=== PATIENT | male | born 1955 | race Caucasian/White ===

== ENCOUNTER 2019-07-25 17:04 | Inpatient (IN) | payer OTHER ==
--- NOTE | 2019-07-25 17:31 | PDOC ---
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 Patient was sitting watching TV with his nephews when they noticed his eyes half shut, he turned pale, and his head slumped to the side. They were concerned and put a cold towel on his forehead before calling EMS. Per EMS, found patient with SBP 50s, patient given 200cc IVF bolus en route, HTN on arrival in ER. Patient without prodromal symptoms, feels well and at baseline at the current time. Per Nephew, patient has had memory deficits for over a year and is baseline A&Ox2, never knowing the time/date. Otherwise, no neurologic deficits known at baseline. Denies chest pain, SOB, nausea, vomiting , abdominal pain, headache, dizziness / lightheadedness, fevers, chills, recent illnesses, any recent drug use, issues with blood sugar / diabetes. Nephew reports that patient has been eating and drinking well at home - patient ate a bag of chips between triage and being seen by provider - told to remain NPO. All: PCNs > Swelling Meds: Per chart PMH: As above PSH: Per chart NIH Stroke Scale - Last Known Well Date/Time & Onset Date Last Known Well: 07/25/19 Time Last Known Well: 04:00 - Initial Evaluation Level of consciousness: Alert Ask patient the month and their age: Answers both correctly Ask patient to open & close eyes; make fist and let go: Obeys both correctly Best gaze (horizontal eye movement): Normal Visual field testing: No visual field loss Facial paresis (Show teeth/raise eyebrows/close eyes tight): Normal symmetrical movement Motor Function: Left Arm: Normal Motor Function: Right Arm: Normal (extends arm 90 (or 45) degrees for 10 seconds without drift Motor Function: Left Leg: Normal (extends leg 30 degrees for 5 seconds without drift) Motor Function: Right Leg: Normal (extends leg 30 degrees for 5 seconds without drift) Limb Ataxia: No ataxia Sensory(Use pinprick test arms,legs,trunk,face/side to side): Normal Best language (Describe picture, name items, read sentences): No Aphasia Dysarthria (read several words): Normal articulation Extinction and Inattention: No abnormality - Total Score NIH Stroke Scale Score: 0 Past History - Travel Traveled outside of the country in the last 30 days: No Close contact w/someone who was outside of country & ill: No - Past Medical History Allergies/Adverse Reactions: Allergies Allergy/AdvReac Type Severity Reaction Status Date / Time Penicillins Allergy Verified 07/25/19 17:29 Home Medications: Ambulatory Orders Unobtainable 07/25/19 - Psycho Social/Smoking Cessation Hx Smoking History: Current every day smoker Number of Cigarettes Smoked Daily: 10 Information on smoking cessation initiated: No Hx Alcohol Use: Yes (denies) Drug/Substance Use Hx: Yes (denies) Review of Systems - Review of Systems Able to Perform ROS?: Yes Is the patient limited Spanish proficient: No Constitutional: No: Chills, Diaphoresis, Fever, Weakness HEENTM: No: Recent change in vision, Nose Pain, Nose Congestion, Throat Pain Respiratory: No: Cough, Orthopnea, Shortness of Breath, Wheezing Cardiac (ROS): Yes: Syncope (pre-syncope). No: Chest Pain, Edema, Irregular Heart Rate, Lightheadedness, Palpitations, Chest Tightness ABD/GI: No: Constipated, Diarrhea, Nausea, Vomiting : No: Burning, Dysuria, Frequency, Pain, Urgency Musculoskeletal: No: Back Pain, Muscle Pain, Muscle Weakness Integumentary: No: Bruising, Dryness, Erythema, Pruritus, Rash Neurological: No: Headache, Numbness, Tingling, Weakness Psychiatric: No: Stressors, Change in Appetite Endocrine: No: Increased Thirst, Increased Urine, Change in Weight Hematologic/Lymphatic: No: Anemia, Blood Clots, Easy Bleeding All Other Systems: Reviewed and Negative *Physical Exam - Vital Signs Last Vital Signs Temp Pulse Resp BP Pulse Ox 97.4 F L 60 18 157/93 100 07/25/19 17:22 07/25/19 17:22 07/25/19 17:22 07/25/19 17:22 07/25/19 17:22 - Physical Exam 07/25/19 17:30 Vitals reviewed, hypertensive, AF GEN: Well appearing, appears stated age, NAD, comfortable. AAOx2 - doesn't know date/time. HEENT: NCAT, EOMI, PERRL. Sclera anicteric, noninjected. No facial asymmetry. Moist mucous membranes. Normal voice. Trachea midline. CV: RRR, S1/S2, no murmurs / rubs / gallops appreciated. LUNG: CTAB, normal work of breathing. No wheezes, rales, rhonchi. No cough. Speaking full sentences. GI: Soft, NTND, +BS, no guarding, no rebound. No masses. Neg CVAT b/l. EXTREMITIES: 2+ distal pulses. No LE edema. No obvious deformities of all extremities. SKIN: Warm, dry, no rashes appreciated, non-jaundiced. PSYCH: Normal mood and affect. Cooperative and appropriate. NEURO: CN 2-12 intact. Moving all extremities well with 5+ strength and normal sensation to light touch throughout. Normal [id number]. Normal rapid alternating movements. Normal gait. No pronator drift. Negative Romberg. 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 NIHSS 0. TIA vs orthostatic hypotension vs intox. - Stoke/TIA Orderset - Utox 07/25/19 19:27 - EKbpm, NSR, normal axis, QTc 419, no ischemic changes 07/25/19 19:28 - CBC unremarkable - Cr 1.6 without baseline - Trop negative - UTox negative - NCHCT Pending 07/25/19 20:30 - IVF changed to 1L bolus, will reassess Cr after 07/25/19 21:20 - Pt received <100cc additional fluid with BP increase from 150s to >200SBP - Concerning for hypertensive emergency given syncope, flattened T waves, 3+ blood in UA possibly residential sales representative of end organ damage - Nitro Drip started - ICU Consulted - Patient without adequate f/u, lacks PCP/Cards/Renal Dispo: Admit Hospitalist ICU 07/25/19 22:04 - Spoke with ICU EXCHANGE ENGINEER, giving patient Procardia 60 PO 07/25/19 22:19 - Admit Med/Surg: Syncope, questionable Hypertensive Emergency - CXR without infiltrate or effusion, no PTX or other acute pathology Discharge - Discharge Information Problems reviewed: Yes Clinical Impression/Diagnosis: Hypertensive emergency, ANA (acute kidney injury), Pre-syncope Hematuria Qualifiers: Hematuria type: unspecified type Qualified Code(s): R31.9 - Hematuria, unspecified Condition: Guarded - Admission Yes - Follow up/Referral - Patient Discharge Instructions - Post Discharge Activity
[2019-07-25] MEDS ORDERED: SODIUM CHLORIDE 1,000 ML IV SCH (18:00)
[2019-07-25 18:14] LABS: BASO % 0.3 % (0-2.0); EOS % 0.9 % (0-4.5); HEMATOCRIT 40.3 % (35.4-49); HEMOGLOBIN 13.8 GM/dL (11.7-16.9); LYMPH % 10.6 % (8-40); MCH 29.8 pg (25.7-33.7); MCHC 34.2 g/dl (32.0-35.9); MEAN CELL VOLUME 87.2 fl (80-96); MEAN PLT VOLUME 7.7 fl (7.5-11.1); MONO % 4.8 % (3.8-10.2); NEUT % 83.4 % (42.8-82.8); PLATELET COUNT 195 K/MM3 (134-434); RBC 4.62 M/mm3 (4.00-5.60); RDW 14.2 % (11.9-15.9); WHITE BLOOD COUNT 9.5 K/mm3 (4.0-10.0)
[2019-07-25 18:21] LABS: INR 1.03 (0.83-1.09); PROTHROMBIN TIME (PATIENT) 12.1 SEC (9.7-13.0)
[2019-07-25 18:23] LABS: ACTIVATED PTT 23.9 SECONDS (25.2-36.5)
[2019-07-25 18:41] LABS: CHOLESTEROL 176 mg/dL (50-200); HDL CHOLESTEROL 28 mg/dL (40-60); LDL CHOLESTEROL (ONLY SJRH) 118 mg/dL (5-100); TRIGLYCERIDES 132 mg/dL (0-150)
[2019-07-25 18:42] LABS: ALBUMIN 3.4 g/dl (3.4-5.0); ALK PHOS 66 U/L (45-117); ANION GAP 6 MMOL/L (8-16); BILIRUBIN,TOTAL 0.4 mg/dL (0.2-1); BLOOD UREA NITROGEN 24.4 mg/dL (7-18); CHLORIDE 108 mmol/L (98-107); CO2 27 mmol/L (21-32); CREATININE 1.6 mg/dL (0.55-1.3); GLUCOSE,RANDOM 126 mg/dL (74-106); POTASSIUM 4.1 mmol/L (3.5-5.1); SGOT/AST 14 U/L (15-37); SGPT/ALT 17 U/L (13-61); SODIUM 141 mmol/L (136-145); TOT PROT 6.4 g/dl (6.4-8.2)
[2019-07-25 18:51] LABS: EPI CELLS 2.6 /HPF (0-5/HPF); HYALINE CASTS 8 /lpf (0-8); URINE APPEARANCE CLEAR; URINE BILIRUBIN NEGATIVE (NEGATIVE); URINE COLOR YELLOW; URINE GLUCOSE (UA) NEGATIVE (NEGATIVE); URINE KETONE NEGATIVE (NEGATIVE); URINE LEUK ESTERASE NEGATIVE (NEGATIVE); URINE NITRITE NEGATIVE (NEGATIVE); URINE PROTEIN 2+ (NEGATIVE); URINE RBC 133 /hpf (0-4); URINE UROBILINOGEN 0.2 mg/dL (0.2-1.0); URINE WBC 3 /hpf (0-5)
[2019-07-25 18:59] LABS: COCAINE, UR NEGATIVE ng/ml (CUTOFF=300); METHADONE, UR NEGATIVE ng/ml (CUTOFF=300); OPIATES, URI NEGATIVE ng/ml (CUTOFF=300); PHENCYCLIDINE,URINE NEGATIVE ng/ml (CUTOFF=25); URINE AMPHETAMINES NEGATIVE ng/ml (CUTOFF=500); URINE BARBITURATES NEGATIVE ng/ml (CUTOFF=200); URINE BENZODIAZEPINES NEGATIVE ng/ml (CUTOFF=200)
--- NOTE | 2019-07-25 19:50 | PDOC ---
Attending Attestation - Resident Resident Name: Jimbo Moss - ED Attending Attestation I have performed the following: I have examined & evaluated the patient, The case was reviewed & discussed with the resident, I agree w/resident's findings & plan - HPI HPI: 07/27/19 01:54 Pateint came with a near syncope. He has HTN that is not controlled as he doesn 't have meds and doesn't knwo his med names or his doc's name. He uses drugs and has been clean; now living with a nephew who took him into his home. Pt has HTN that is poorly controlled. He has no specific complaints. Today he felt dizzy and almost passed out, but he didn't. - Physicial Exam PE: 07/27/19 01:56 Normal exam. No pitting edema BP elevated Chest clear Lungs clear heart RRR Pt has no abd pain Pt has no flank pain Neuro exam WNL - Medical Decision Making 07/25/19 19:49 Patient Name: MICHAEL HINDS THIS IS A PRELIMINARY REPORT FROM [facility] DATE OF SERVICE: 2019-07-25 19:02:38 IMAGES: 224 EXAM: CT HEAD WITHOUT CONTRAST REASON FOR EXAM: Rule out CVA COMPARISON: None FINDINGS: No intracranial hemorrhage midline shift, acute large vessel infarction Gomez white matter demarcation intact. Ventricles, sulci and basal cisterns are within normal for age. Chronic bilateral maxillary sinusitis. The rest of the visualized paranasal sinuses and mastoid air cells are clear. Orbital structures are intact. Calvarium intact. IMPRESSION: No acute intracranial findings. Chronic bilateral maxillary sinusitis 07/25/19 20:50 Pt's BP is 194/120 and he has end organ damage BUN/CR elevated and blood in his urine. Pt is non compliant with HTN meds and he has no idea of the meds that he is supposed to take and has no idea of the name of his doctor.
[2019-07-25] MEDS ORDERED: SODIUM CHLORIDE 0.9% 500 ML INFUS.BAG IV ONE (20:30)
[2019-07-25] MEDS ORDERED: NITROGLYCERIN 25MG/D5W 250ML 25 MG/250 ML ML IVPB SCH (21:00)
[2019-07-25] MEDS ORDERED: LISINOPRIL 20 MG TABLET (FP) PO SCH (21:00)
[2019-07-25] MEDS ORDERED: NITROGLYCERIN 25MG/D5W 250ML 25 MG/250 ML ML IVPB ONE (21:45)
[2019-07-25] MEDS ORDERED: NIFEdipine 10 MG CAPSULE (FP) PO ONE (22:15)
[2019-07-25] MEDS ORDERED: NIFEdipine E.R. 30 MG TABLET (FP) ONE ×2 (22:38→22:40)
[2019-07-25] MEDS ORDERED: IBUPROFEN 600 MG TABLET (FP) PO ONE (23:01)
--- NOTE | 2019-07-26 01:08 | HP ---
CHIEF COMPLAINT:Presyncope PCP:Unknown HISTORY OF PRESENT ILLNESS: 64yo Male Poor historian brought in by EMS after presyncope episode around 4 PM on 07/25/2020 patient was watching TV with his nephews and then they noticed that he turned pale and called EMS. Allegedly patient was initially hypotensive and was resuscitated with 200 cc of IV fluid by EMS, hypertension in the ER. Patient denied chest pain, shortness of breath, abdominal pain, headache, focal weaknesses, recent drug use. ER course was notable for: (1)Head CT (2)Chest x-ray (3)Nicardipine p.o. Recent Travel:No PAST MEDICAL HISTORY:Possible CVA, hypertension, substance abuse PAST SURGICAL HISTORY:None Social History: Smoking:No Alcohol:No Drugs: Past heroin user intranasally Allergies Penicillins Allergy (Verified 07/25/19 17:29) HOME MEDICATIONS: Home Medications Medication Instructions Recorded Unobtainable 07/25/19 REVIEW OF SYSTEMS CONSTITUTIONAL: Absent: fever, chills, diaphoresis, , malaise, loss of appetite, weight change Present:generalized weakness, Dizziness HEENT: Absent: rhinorrhea, nasal congestion, throat pain, throat swelling, difficulty swallowing, mouth swelling, ear pain, eye pain, visual changes CARDIOVASCULAR: Absent: chest pain, syncope, palpitations, irregular heart rate, lightheadedness , peripheral edema RESPIRATORY: Absent: cough, shortness of breath, dyspnea with exertion, orthopnea, wheezing, stridor, hemoptysis GASTROINTESTINAL: Absent: abdominal pain, abdominal distension, nausea, vomiting, diarrhea, constipation, melena, hematochezia GENITOURINARY: Absent: dysuria, frequency, urgency, hesitancy, hematuria, flank pain, genital pain MUSCULOSKELETAL: Absent: myalgia, arthralgia, joint swelling, back pain, neck pain SKIN: Absent: rash, itching, pallor HEMATOLOGIC/IMMUNOLOGIC: Absent: easy bleeding, easy bruising, lymphadenopathy, frequent infections ENDOCRINE: Absent: unexplained weight gain, unexplained weight loss, heat intolerance, cold intolerance NEUROLOGIC: Absent: headache, focal weakness or paresthesias, dizziness, unsteady gait, seizure, mental status changes, bladder or bowel incontinence PSYCHIATRIC: Absent: anxiety, depression, suicidal or homicidal ideation, hallucinations. PHYSICAL EXAMINATION Vital Signs - 24 hr 07/25/19 07/25/19 07/25/19 17:22 18:47 20:55 Temperature 97.4 F L 97.9 F Pulse Rate 60 Pulse Rate [ 72 67 Apical] Respiratory 18 18 18 Rate Blood Pressure 157/93 Blood Pressure 148/77 203/98 H [Left Arm] O2 Sat by Pulse 100 100 98 Oximetry (%) 07/25/19 07/25/19 07/25/19 21:29 21:54 22:41 Temperature Pulse Rate Pulse Rate [ 67 68 94 H Apical] Respiratory 20 17 17 Rate Blood Pressure Blood Pressure 198/104 H 170/91 175/134 H [Left Arm] O2 Sat by Pulse 99 99 99 Oximetry (%) GENERAL: Awake, alert, and fully oriented, in no acute distress. HEAD: Normal with no signs of trauma. EYES: Pupils equal, round and reactive to light, extraocular movements intact, sclera anicteric, conjunctiva clear. No lid lag. EARS, NOSE, THROAT: Ears normal, nares patent, oropharynx clear without exudates. Moist mucous membranes. NECK: Normal range of motion, supple without lymphadenopathy, JVD, or masses. LUNGS: Breath sounds equal, clear to auscultation bilaterally. No wheezes, and no crackles. No accessory muscle use. HEART: Regular rate and rhythm, normal S1 and S2 without murmur, rub or gallop. ABDOMEN: Soft, nontender, not distended, normoactive bowel sounds, no guarding, no rebound, no masses. MUSCULOSKELETAL: Normal range of motion at all joints. No bony deformities or tenderness. No CVA tenderness. UPPER EXTREMITIES: 2+ pulses, warm, well-perfused. No cyanosis. No clubbing. No peripheral edema. LOWER EXTREMITIES: 2+ pulses, warm, well-perfused. No calf tenderness. No peripheral edema. NEUROLOGICAL: Cranial nerves II-XII intact. Normal speech. Normal gait. PSYCHIATRIC: Cooperative. Good eye contact. Appropriate mood and affect. SKIN: Warm, dry, normal turgor, no rashes or lesions noted, normal capillary refill. Laboratory Results - last 24 hr 07/25/19 07/25/19 07/25/19 17:45 17:45 17:45 WBC RBC Hgb Hct MCV MCH MCHC RDW Plt Count MPV Absolute Neuts (auto) Neutrophils % Lymphocytes % Monocytes % Eosinophils % Basophils % Nucleated RBC % PT with INR 12.10 INR 1.03 PTT (Actin FS) 23.9 L Sodium 141 Potassium 4.1 Chloride 108 H Carbon Dioxide 27 Anion Gap 6 L BUN 24.4 H Creatinine 1.6 H Est GFR (CKD-EPI)AfAm 51.63 Est GFR (CKD-EPI)NonAf 44.55 Random Glucose 126 H Calcium 9.0 Total Bilirubin 0.4 AST 14 L ALT 17 Alkaline Phosphatase 66 Creatine Kinase 121 Troponin I < 0.02 Total Protein 6.4 Albumin 3.4 Triglycerides 132 Cholesterol 176 Total LDL Cholesterol 118 H HDL Cholesterol 28 L Urine Color Urine Appearance Urine pH Ur Specific [place] Urine Protein Urine Glucose (UA) Urine Ketones Urine Blood Urine Nitrite Urine Bilirubin Urine Urobilinogen Ur Leukocyte Esterase Urine WBC (Auto) Urine RBC (Auto) Urine Casts (Auto) U Epithel Cells (Auto) Urine Bacteria (Auto) Opiates Screen Methadone Screen Barbiturate Screen Phencyclidine Screen Ur Amphetamines Screen MDMA (Ecstasy) Screen Benzodiazepines Screen Cocaine Screen U Marijuana (THC) Screen 07/25/19 07/25/19 07/25/19 17:45 18:30 18:30 WBC 9.5 RBC 4.62 Hgb 13.8 Hct 40.3 MCV 87.2 MCH 29.8 MCHC 34.2 RDW 14.2 Plt Count 195 MPV 7.7 Absolute Neuts (auto) 7.9 Neutrophils % 83.4 H Lymphocytes % 10.6 Monocytes % 4.8 Eosinophils % 0.9 Basophils % 0.3 Nucleated RBC % 0 PT with INR INR PTT (Actin FS) Sodium Potassium Chloride Carbon Dioxide Anion Gap BUN Creatinine Est GFR (CKD-EPI)AfAm Est GFR (CKD-EPI)NonAf Random Glucose Calcium Total Bilirubin AST ALT Alkaline Phosphatase Creatine Kinase Troponin I Total Protein Albumin Triglycerides Cholesterol Total LDL Cholesterol HDL Cholesterol Urine Color Yellow Urine Appearance Clear Urine pH 6.0 Ur Specific [place] 1.019 Urine Protein 2+ H Urine Glucose (UA) Negative Urine Ketones Negative Urine Blood 3+ H Urine Nitrite Negative Urine Bilirubin Negative Urine Urobilinogen 0.2 Ur Leukocyte Esterase Negative Urine WBC (Auto) 3 Urine RBC (Auto) 133 Urine Casts (Auto) 8 U Epithel Cells (Auto) 2.6 Urine Bacteria (Auto) 5.0 Opiates Screen Negative Methadone Screen Negative Barbiturate Screen Negative Phencyclidine Screen Negative Ur Amphetamines Screen Negative MDMA (Ecstasy) Screen Negative Benzodiazepines Screen Negative Cocaine Screen Negative U Marijuana (THC) Screen Negative Imaging studies reviewed ASSESSMENT/PLAN: 64-year-old male with hypertensive urgency. Elevated creatinine however unknown baseline.ANA versus CKD. Presyncope episode at home. Ex-heroin user. [facility] Start amlodipine 5 mg daily and lisinopril 10 mg daily and titrate as needed IV fluid hydration Renal sonogram Avoid nephrotoxins Urine toxicology screen Repeat chemistry Obtain medical records from PCP during the day Monitor vital signs closely Salt restriction fall precautions Physical therapy Heparin subcutaneously for DVT prophylaxis Visit type - Emergency Visit Emergency Visit: Yes ED Registration Date: 07/26/19 Care time: The patient presented to the Emergency Department on the above date and was hospitalized for further evaluation of their emergent condition. - New Patient This patient is new to me today: Yes Date on this admission: 07/26/19 - Critical Care Critical Care patient: No
[2019-07-26] MEDS: SODIUM CHLORIDE 1,000 ML IV SCH (01:58)
[2019-07-26] MEDS: LISINOPRIL 10 MG TABLET (FP) PO SCH (09:40)
[2019-07-26] MEDS: amLODIPine BESYLATE 5 MG TABLET (FP) PO SCH (09:40)
--- NOTE | 2019-07-26 13:18 | EKG ---
Test Reason : Blood Pressure : / mmHG Vent. Rate : 063 BPM Atrial Rate : 063 BPM P-R Int : 146 ms QRS Dur : 090 ms QT Int : 410 ms P-R-T Axes : 053 033 -69 degrees QTc Int : 419 ms NORMAL SINUS RHYTHM NONSPECIFIC T WAVE ABNORMALITY ABNORMAL ECG NO PREVIOUS ECGS AVAILABLE Confirmed by JAZ GILL MD ([id number]) on 07/26/2019 1:18:38 PM Referred By: Confirmed By:JAZ GILL MD
[2019-07-26 17:23] LABS: HEMATOCRIT 39.7 % (35.4-49); HEMOGLOBIN 13.6 GM/dL (11.7-16.9); MCH 29.6 pg (25.7-33.7); MCHC 34.3 g/dl (32.0-35.9); MEAN CELL VOLUME 86.4 fl (80-96); MEAN PLT VOLUME 7.3 fl (7.5-11.1); PLATELET COUNT 217 K/MM3 (134-434); RDW 14.1 % (11.9-15.9)
--- NOTE | 2019-07-26 17:27 | PN ---
Progress Note, Physician Chief Complaint: lightheaded History of Present Illness: seen and examined in ER. Feeling ok, giggling. - Current Medication List Current Medications: Active Medications Amlodipine Besylate (Norvasc -) 5 mg PO DAILY [facility] Last Admin: 07/26/19 09:40 Dose: 5 mg Sodium Chloride (Normal Saline -) 1,000 mls @ 75 mls/hr IV ASDIR [facility] Last Admin: 07/26/19 01:58 Dose: 75 mls/hr Lisinopril (Prinivil) 10 mg PO DAILY [facility] Last Admin: 07/26/19 09:40 Dose: 10 mg - Objective Vital Signs: Vital Signs Temperature 97.9 F 07/25/19 18:47 Pulse Rate 74 07/26/19 15:52 Respiratory Rate 16 07/26/19 15:52 Blood Pressure 138/74 07/26/19 15:52 O2 Sat by Pulse Oximetry (%) 97 07/26/19 06:43 Constitutional: Yes: Well Nourished, No Distress, Calm, Other (dee dee) Cardiovascular: Yes: WNL, Regular Rate and Rhythm Respiratory: Yes: WNL, Regular, CTA Bilaterally Gastrointestinal: Yes: WNL, Normal Bowel Sounds, Soft, Abdomen, Obese Musculoskeletal: Yes: WNL Extremities: Yes: WNL Edema: LLE: Trace, RLE: Trace Peripheral Pulses WNL: Yes Neurological: Yes: WNL, Alert, Oriented Labs: INR, PTT INR 1.03 (0.83-1.09) 07/25/19 17:45 Problem List - Problems (1) ANA (acute kidney injury) Code(s): N17.9 - ACUTE KIDNEY FAILURE, UNSPECIFIED (2) Hematuria Code(s): R31.9 - HEMATURIA, UNSPECIFIED Qualifiers: Hematuria type: unspecified type Qualified Code(s): R31.9 - Hematuria, unspecified (3) Hypertensive emergency Code(s): I16.1 - HYPERTENSIVE EMERGENCY (4) Pre-syncope Code(s): R55 - SYNCOPE AND COLLAPSE Assessment/Plan ASSESSMENT: HTN urgency ANA Pre-syncope IVDA Hx Plan: BP much better controlled with current regimen pending repeat labs renal us pending ct scan neg na restriction utox neg 2decho in AM
[2019-07-26 17:46] LABS: BLOOD UREA NITROGEN 25.8 mg/dL (7-18); CALCIUM 9.2 mg/dL (8.5-10.1); CREATININE 1.6 mg/dL (0.55-1.3); MAGNESIUM 2.4 mg/dL (1.8-2.4); POTASSIUM 3.9 mmol/L (3.5-5.1)
[2019-07-26 17:51] VITALS: BMI 27.3
[2019-07-27] MEDS: SODIUM CHLORIDE 1,000 ML IV SCH (04:05)
[2019-07-27] MEDS: amLODIPine BESYLATE 5 MG TABLET (FP) PO SCH ×3 (05:59→10:41)
[2019-07-27] MEDS: LISINOPRIL 10 MG TABLET (FP) PO SCH ×2 (06:00→10:41)
--- NOTE | 2019-07-27 09:36 | PN ---
Physical Exam: SUBJECTIVE: Patient seen and examined. He has no complaints. OBJECTIVE: Vital Signs Period Temp Pulse Resp BP Sys/Allen Pulse Ox Last 24 Hr 98.0 F-98.8 F 74-83 16-20 108-173/62-91 99-99 GENERAL: The patient is awake, alert, and fully oriented, in no acute distress. LUNGS: Breath sounds equal, clear to auscultation bilaterally, no wheezes, no crackles, no accessory muscle use. HEART: Regular rate and rhythm, S1, S2 without murmur, rub or gallop. ABDOMEN: Soft, nontender, nondistended, normoactive bowel sounds, no guarding, no rebound, no hepatosplenomegaly, no masses. EXTREMITIES: 2+ pulses, warm, well-perfused, no edema. Laboratory Results - last 24 hr 07/26/19 07/26/19 07/26/19 16:58 16:58 16:58 WBC 7.0 RBC 4.60 Hgb 13.6 Hct 39.7 MCV 86.4 MCH 29.6 MCHC 34.3 RDW 14.1 Plt Count 217 MPV 7.3 L Sodium 141 Potassium 3.9 Chloride 110 H Carbon Dioxide 26 Anion Gap 5 L BUN 25.8 H Creatinine 1.6 H Est GFR (CKD-EPI)AfAm 51.63 Est GFR (CKD-EPI)NonAf 44.55 Random Glucose 99 Hemoglobin A1c % 6.4 H Calcium 9.2 Magnesium 2.4 Blood Type 07/26/19 19:04 WBC RBC Hgb Hct MCV MCH MCHC RDW Plt Count MPV Sodium Potassium Chloride Carbon Dioxide Anion Gap BUN Creatinine Est GFR (CKD-EPI)AfAm Est GFR (CKD-EPI)NonAf Random Glucose Hemoglobin A1c % Calcium Magnesium Blood Type B POSITIVE Active Medications Generic Name Dose Route Start Last Admin Trade Name Freq PRN Reason Stop Dose Admin Amlodipine Besylate 5 mg 07/26/19 10:00 07/27/19 06:00 Norvasc - PO 5 mg DAILY PREETHI Administration Sodium Chloride 1,000 mls @ 75 mls/hr 07/26/19 01:45 07/27/19 04:05 Normal Saline - IV 75 mls/hr ASDIR PREETHI Administration Lisinopril 10 mg 07/26/19 10:00 07/27/19 06:00 Prinivil PO 10 mg DAILY PREETHI Administration ASSESSMENT/PLAN: This is a 64 year old man with a history of HTN, IVDU who presented to the ED after he was noted to become pale while watching tv. 1. Hypertensive urgency - Improved 2. HTN - Will increase Norvasc for better BP control - Continue lisinopril 3. Disposition - Expect discharge tomorrow if BP better controlled Visit type - Emergency Visit Emergency Visit: Yes ED Registration Date: 07/26/19 Care time: The patient presented to the Emergency Department on the above date and was hospitalized for further evaluation of their emergent condition. - New Patient This patient is new to me today: Yes Date on this admission: 07/27/19 - Critical Care Critical Care patient: No - Discharge Referral Referred to [facility] Med P.C.: No
[2019-07-27] MEDS ORDERED: amLODIPine BESYLATE 5 MG TABLET (FP) PO ONE (11:25)
[2019-07-27 12:24] LABS: BASO % 0.6 % (0-2.0); EOS % 1.8 % (0-4.5); HEMOGLOBIN 14.2 GM/dL (11.7-16.9); LYMPH % 22.6 % (8-40); MCH 30.5 pg (25.7-33.7); MCHC 35.6 g/dl (32.0-35.9); MEAN CELL VOLUME 85.5 fl (80-96); MEAN PLT VOLUME 7.4 fl (7.5-11.1); MONO % 7.4 % (3.8-10.2); NEUT % 67.6 % (42.8-82.8); PLATELET COUNT 204 K/MM3 (134-434); RBC 4.67 M/mm3 (4.00-5.60); RDW 14.2 % (11.9-15.9)
--- NOTE | 2019-07-27 12:25 | ECHO ---
Name: HINDSMICHAEL MENDENHALL Exam:Adult Echocardiogram Study Date: 07/27/2019 09:55 AM Age: 64 yrs Height: 66 in Weight: 170 lb BSA: 1.9 m2 MMode/2D Measurements & Calculations IVSd: 1.1 cm Ao root diam: 2.7 cm LVIDd: 4.5 cm LA dimension: 3.3 cm LVIDs: 3.3 cm ACS: 1.7 cm LVPWd: 1.3 cm EDV(Teich): 94.3 ml LVOT diam: 1.8 cm ESV(Teich): 43.0 ml RV S Ray: 12.3 cm/sec Doppler Measurements & Calculations MV E max ray: 107.6 cm/sec Ao V2 max: 151.3 cm/sec MV A max ray: 96.7 cm/sec Ao max P.2 mmHg MV E/A: 1.1 Ao V2 mean: 96.6 cm/sec MV dec time: 0.16 sec Ao mean P.4 mmHg Ao V2 VTI: 28.2 cm QUIANA(I,D): 1.6 cm2 QUIANA(V,D): 1.5 cm2 LV V1 max P.1 mmHg MR max ray: 209.6 cm/sec LV V1 mean P.6 mmHg MR max P.6 mmHg LV V1 max: 87.9 cm/sec LV V1 mean: 60.6 cm/sec LV V1 VTI: 17.3 cm SV(LVOT): 45.4 ml TR max ray: 175.2 cm/sec TR max P.1 mmHg PA V2 max: 81.4 cm/sec PI end-d ray: 103.2 cm/sec PA max P.7 mmHg Med Peak E' Ray: 7.2 cm/sec Med E/e': 14.9 Lat Peak E' Ray: 6.5 cm/sec Lat E/e': 16.4 Procedure A complete two-dimensional transthoracic echocardiogram was performed (2D, M-mode, Doppler and color flow Doppler). Left Ventricle The left ventricle is normal in size. Left ventricular systolic function is normal. Ejection Fraction = 55- 60%. No regional wall motion abnormalities noted. Right Ventricle The right ventricle is normal size. The right ventricular systolic function is normal. Atria The left atrial size is normal. Right atrial size is normal. Mitral Valve The mitral valve is normal in structure and function. There is trace to mild mitral regurgitation. Tricuspid Valve The tricuspid valve is normal in structure and function. There is mild tricuspid regurgitation. Right ventricular systolic pressure is normal. Aortic Valve There is mild aortic sclerosis.;. No aortic regurgitation is present. Pulmonic Valve The pulmonic valve is not well visualized. Trace to mild pulmonic valvular regurgitation. Great Vessels The aortic root is normal size. Pericardium/Pleura There is no pericardial effusion. Interpretation Summary The left ventricle is normal in size. Left ventricular systolic function is normal. No regional wall motion abnormalities noted. Ejection Fraction = 55-60%. The right ventricular systolic function is normal. The left atrial size is normal. Right atrial size is normal. There is trace to mild mitral regurgitation. There is mild tricuspid regurgitation. There is mild aortic sclerosis. No aortic regurgitation is present. Trace to mild pulmonic valvular regurgitation. There is no pericardial effusion. Kevon Ocampo MD 07/27/2019 12:25 PM
[2019-07-27 12:47] LABS: BLOOD UREA NITROGEN 24.2 mg/dL (7-18); CALCIUM 9.2 mg/dL (8.5-10.1); CREATININE 1.3 mg/dL (0.55-1.3); POTASSIUM 3.7 mmol/L (3.5-5.1)
[2019-07-27] MEDS: LABETALOL HCL 100 MG TABLET (FP) PO SCH (23:01)
[2019-07-28 09:22] VITALS: BP 140/75; PULSE 69; TEMP 98.1
[2019-07-28] MEDS: LABETALOL HCL 100 MG TABLET (FP) PO SCH (09:38)
[2019-07-28] MEDS: LISINOPRIL 10 MG TABLET (FP) PO SCH (09:38)
[2019-07-28] MEDS: SODIUM CHLORIDE 1,000 ML IV SCH (09:38)
[2019-07-28] MEDS ORDERED: amLODIPine BESYLATE 10 MG TABLET (FP) PO SCH (10:00)
--- NOTE | 2019-07-28 11:11 | DS ---
Physical Exam: SUBJECTIVE: Patient seen and examined OBJECTIVE: Vital Signs Period Temp Pulse Resp BP Sys/Allen Pulse Ox Last 24 Hr 97.8 F-98.1 F 68-81 20-20 116-154/62-84 98-99 PHYSICAL EXAM GENERAL: The patient is awake, alert, and fully oriented, in no acute distress. HEAD: Normal with no signs of trauma. EYES: PERRL, extraocular movements intact, sclera anicteric, conjunctiva clear. ENT: Ears normal, nares patent, oropharynx clear without exudates, moist mucous membranes. NECK: Trachea midline, full range of motion, supple. LUNGS: Breath sounds equal, clear to auscultation bilaterally, no wheezes, no crackles, no accessory muscle use. HEART: Regular rate and rhythm, S1, S2 without murmur, rub or gallop. ABDOMEN: Soft, nontender, nondistended, normoactive bowel sounds, no guarding, no rebound, no hepatosplenomegaly, no masses. EXTREMITIES: 2+ pulses, warm, well-perfused, no edema. NEUROLOGICAL: Cranial nerves II through XII grossly intact. Normal speech, gait not observed. PSYCH: Normal mood, normal affect. SKIN: Warm, dry, normal turgor, no rashes or lesions noted. LABS Laboratory Results - last 24 hr 07/27/19 07/27/19 11:15 11:15 WBC 8.0 RBC 4.67 Hgb 14.2 Hct 40.0 MCV 85.5 MCH 30.5 MCHC 35.6 RDW 14.2 Plt Count 204 MPV 7.4 L Absolute Neuts (auto) 5.4 Neutrophils % 67.6 Lymphocytes % 22.6 D Monocytes % 7.4 Eosinophils % 1.8 D Basophils % 0.6 Nucleated RBC % 0 Sodium 141 Potassium 3.7 Chloride 109 H Carbon Dioxide 26 Anion Gap 6 L BUN 24.2 H Creatinine 1.3 Est GFR (CKD-EPI)AfAm 66.36 Est GFR (CKD-EPI)NonAf 57.26 Random Glucose 95 Calcium 9.2 HOSPITAL COURSE: Date of Admission:07/26/19 Date of Discharge: 07/28/19 Discharge Summary Problems reviewed: Yes Reason For Visit: ACUTE KIDNEY INJURY MENATURIA PRE SYNCOPE HYPERTEN Current Active Problems ANA (acute kidney injury) (Acute) Hematuria (Acute) Hypertensive emergency (Acute) Pre-syncope (Acute) Condition: Guarded - Instructions - Home Medications Comprehensive Discharge Medication List: Ambulatory Orders Amlodipine Besylate [Norvasc -] 10 mg PO DAILY #30 tablet 07/28/19 Labetalol HCl [Normodyne -] 100 mg PO BID #60 tablet 07/28/19 Lisinopril [Prinivil] 10 mg PO DAILY #30 tablet 07/28/19 - Discharge Referral Referred to [facility] No ATTENDING PHYSICIAN STATEMENT I saw and evaluated the patient. I reviewed the resident's note and discussed the case with the resident. I agree with the resident's findings and plan as documented. SUBJECTIVE: OBJECTIVE: ASSESSMENT AND PLAN:
--- NOTE | 2019-07-28 16:29 | PN ---
Teaching Attending Note Name of Resident: Jacob Tovar ATTENDING PHYSICIAN STATEMENT I saw and evaluated the patient. I reviewed the resident's note and discussed the case with the resident. I agree with the resident's findings and plan as documented. SUBJECTIVE: Seen and examined at bedside, feeling well, no complaints, ready to go home. OBJECTIVE: Vital Signs - 24 hr 07/27/19 07/27/19 07/28/19 19:00 21:00 01:00 Temperature 97.8 F 98 F Pulse Rate 78 68 Respiratory 20 20 20 Rate Blood Pressure 154/84 119/66 O2 Sat by Pulse 98 Oximetry (%) 07/28/19 07/28/19 07/28/19 05:48 07:52 09:20 Temperature 98 F 98.1 F Pulse Rate 71 69 Respiratory 20 20 20 Rate Blood Pressure 116/62 140/75 O2 Sat by Pulse 98 Oximetry (%) 07/28/19 09:30 Temperature Pulse Rate Respiratory Rate Blood Pressure O2 Sat by Pulse 99 Oximetry (%) PE: Constitutional: Yes: Well Nourished, No Distress, Calm Cardiovascular: Yes: WNL, Regular Rate and Rhythm Respiratory: Yes: WNL, Regular, CTA Bilaterally Gastrointestinal: Yes: WNL, Normal Bowel Sounds, Soft, Abdomen, Obese Musculoskeletal: Yes: WNL Extremities: Yes: WNL Edema: LLE: Trace, RLE: Trace Peripheral Pulses WNL: Yes Neurological: Yes: WNL, Alert, Oriented labs, meds and imaging reviewed ASSESSMENT: HTN urgency ANA Pre-syncope IVDA Hx Plan: BP much better controlled with current regimen DC home on current meds outpatient followup, monitor renal function 2dechocardiogram report reviewed Problem List - Problems (1) ANA (acute kidney injury) Code(s): N17.9 - ACUTE KIDNEY FAILURE, UNSPECIFIED (2) Hematuria Code(s): R31.9 - HEMATURIA, UNSPECIFIED Qualifiers: Hematuria type: unspecified type Qualified Code(s): R31.9 - Hematuria, unspecified (3) Hypertensive emergency Code(s): I16.1 - HYPERTENSIVE EMERGENCY (4) Pre-syncope Code(s): R55 - SYNCOPE AND COLLAPSE
--- NOTE | 2019-07-28 17:45 | DS ---
Physical Exam: SUBJECTIVE: Patient seen and examined. Offers no complaints. No acute events overnight. Says he wants to go home. OBJECTIVE: Vital Signs Period Temp Pulse Resp BP Sys/Allen Pulse Ox Last 24 Hr 97.8 F-98.1 F 68-78 20-20 116-154/62-84 98-99 PHYSICAL EXAM GENERAL: a/o x 3, in nad, comfortable HEAD: Normal with no signs of trauma. EYES: PERRL, injected conjunctiva ENT: moist mucous membranes. NECK: supple. LUNGS: lungs ctab HEART: RRR, no murmurs appreciated ABDOMEN: Soft, nontender, nondistended, normoactive bowel sounds EXTREMITIES: 2+ pulses, no edema. NEUROLOGICAL: Cranial nerves II through XII grossly intact HOSPITAL COURSE: Date of Admission:07/26/19 #HTN urgency #ANA #Pre-syncope #IVDA Hx Plan: -BP much better controlled with current regimen -DC home on current meds -had long discussion with patient and nephew regarding diagnosis and plan. Discussed the importance of following up outpatient for BP management and to monitor renal function. they agree to follow up with me outpatient. -patient and nephew in agreement with plans. all questions answered -echo report reviewed -discharge on Lisinopril, Labetolol, amlodipine. Date of Discharge: 07/28/19 Minutes to complete discharge: 35 Discharge Summary Problems reviewed: Yes Reason For Visit: ACUTE KIDNEY INJURY MENATURIA PRE SYNCOPE HYPERTEN Condition: Improved - Instructions Diet, Activity, Other Instructions: You were admitted to the hospital because of a dangerously elevated blood pressure which caused injury to your kidneys. Your Blood pressure improved with medications and your kidney function improved. You will need to follow up with your primary care doctor in 1 week. Please take your medications as prescribed. If you develop chest pains, shortness of breath, dizziness, or loss of consciousness, call 911. Disposition: HOME - Home Medications Comprehensive Discharge Medication List: Ambulatory Orders Amlodipine Besylate [Norvasc -] 10 mg PO DAILY #30 tablet 07/28/19 Labetalol HCl [Normodyne -] 100 mg PO BID #60 tablet 07/28/19 Lisinopril [Prinivil] 10 mg PO DAILY #30 tablet 07/28/19 This patient is new to me today: Yes Date on this admission: 07/28/19 Emergency Visit: Yes ED Registration Date: 07/26/19 Care time: The patient presented to the Emergency Department on the above date and was hospitalized for further evaluation of their emergent condition. Critical Care patient: No - Discharge Referral Referred to [facility] No ATTENDING PHYSICIAN STATEMENT I saw and evaluated the patient. I reviewed the resident's note and discussed the case with the resident. I agree with the resident's findings and plan as documented. SUBJECTIVE: OBJECTIVE: ASSESSMENT AND PLAN:
== END 2019-07-28 13:08 | disposition home or self-care (01) | DRG 305 ==
LOC: JER 17:04 → JERBED 22:02 → OBSVTOIN 07-26 01:09 → J7W 07-26 17:25
PROVIDERS: ADMIT Internal Medicine; ATTEND Internal Medicine
DX: I16.1 Hypertensive emergency (principal); N17.9 Acute kidney failure, unspecified; R55 Syncope and collapse; R31.9 Hematuria, unspecified; E66.9 Obesity, unspecified; Z68.27 Body mass index [BMI] 27.0-27.9, adult
CPT/HCPCS: 36415; 70450-TC; 71045-TC-FY; 76775-TC; 80048; 80053; 80061; 80307; 81003; 82550; 83036; 83721; 83735; 84484; 85025; 85027; 85610; 85730; 86850; 86900; 86901; 93005; 93010; 93306-TC; 99285-25; G0378; J7030

== ENCOUNTER 2022-07-26 10:37 | Observation (INO) | payer OTHER ==
[2022-07-26 10:55] VITALS: BMI 25.8
[2022-07-26 13:19] LABS: BASO % 0.3 % (0-2.0); EOS % 1.2 % (0-4.5); HEMATOCRIT 41.1 % (35.4-49); HEMOGLOBIN 14.3 GM/dL (11.7-16.9); LYMPH % 14.1 % (8-40); MCH 29.9 pg (25.7-33.7); MCHC 34.7 g/dl (32.0-35.9); MEAN PLT VOLUME 7.1 fl (7.5-11.1); MONO % 6.5 % (3.8-10.2); NEUT % 77.9 % (42.8-82.8); PLATELET COUNT 203 10^3/uL (134-434); RBC 4.78 M/mm3 (4.00-5.60); RDW 14.2 % (11.9-15.9); WHITE BLOOD COUNT 10.2 K/mm3 (4.0-10.0)
[2022-07-26 13:38] LABS: ACTIVATED PTT 24.7 SECONDS (25.2-36.5)
[2022-07-26 13:48] LABS: INR 1.03 (0.83-1.09); PROTHROMBIN TIME (PATIENT) 11.9 SEC (9.7-13.0)
[2022-07-26 13:52] LABS: ALBUMIN 4.1 g/dl (3.4-5.0); BLOOD UREA NITROGEN 29.4 mg/dL (7-18); CALCIUM 9.7 mg/dL (8.5-10.1); MAGNESIUM 2.3 mg/dL (1.8-2.4)
[2022-07-26 13:55] LABS: CREATININE 1.6 mg/dL (0.55-1.3); PHOSPHOROUS 2.9 mg/dL (2.5-4.9)
[2022-07-26 13:57] LABS: BILIRUBIN,TOTAL 0.7 mg/dL (0.2-1); TOT PROT 7.2 g/dl (6.4-8.2)
[2022-07-26 16:15] LABS: EPI CELLS 4 /uL (0-25.1); HYALINE CASTS 1 /uL (0-3.1); PH,URINE 5.5 (5.0-8.0); URINE APPEARANCE CLEAR; URINE BACTERIA 29 /uL (0-1359); URINE BILIRUBIN NEGATIVE (NEGATIVE); URINE COLOR YELLOW; URINE GLUCOSE (UA) NEGATIVE (NEGATIVE); URINE KETONE NEGATIVE (NEGATIVE); URINE LEUK ESTERASE NEGATIVE (NEGATIVE); URINE NITRITE NEGATIVE (NEGATIVE); URINE PROTEIN TRACE (NEGATIVE); URINE RBC 277 /uL (0-23.9); URINE UROBILINOGEN 0.2 mg/dL (0.2-1.0); URINE WBC 20 /uL (0-25.8)
[2022-07-26] MEDS ORDERED: LACTATED RINGERS SOLUTION 1000 ML INFUS.BAG IV ONE (16:50)
[2022-07-26] MEDS ORDERED: HEPARIN NA (PORCINE) 5,000 UNITS/ML 1ML VIAL ONE (22:00)
[2022-07-26] MEDS: HEPARIN NA (PORCINE) 5,000 UNITS/ML 1ML VIAL SQ SCH (22:05)
[2022-07-27] MEDS: HEPARIN NA (PORCINE) 5,000 UNITS/ML 1ML VIAL SQ SCH ×3 (07:34→21:24)
[2022-07-27 08:52] LABS: BASO % 0.6 % (0-2.0); EOS % 3.3 % (0-4.5); HEMATOCRIT 38.7 % (35.4-49); HEMOGLOBIN 13.6 GM/dL (11.7-16.9); LYMPH % 39.6 % (8-40); MCH 29.9 pg (25.7-33.7); MCHC 35.1 g/dl (32.0-35.9); MEAN CELL VOLUME 85.2 fl (80-96); MEAN PLT VOLUME 7.8 fl (7.5-11.1); MONO % 6.6 % (3.8-10.2); NEUT % 49.9 % (42.8-82.8); PLATELET COUNT 209 10^3/uL (134-434); RBC 4.54 M/mm3 (4.00-5.60); RDW 13.6 % (11.9-15.9); WHITE BLOOD COUNT 6.5 K/mm3 (4.0-10.0)
[2022-07-27 09:18] LABS: BLOOD UREA NITROGEN 21.6 mg/dL (7-18); CALCIUM 9.5 mg/dL (8.5-10.1); MAGNESIUM 2.2 mg/dL (1.8-2.4)
[2022-07-27 09:21] LABS: CREATININE 1.3 mg/dL (0.55-1.3); PHOSPHOROUS 2.7 mg/dL (2.5-4.9)
[2022-07-27 09:23] LABS: BILIRUBIN,TOTAL 0.8 mg/dL (0.2-1); TOT PROT 7.1 g/dl (6.4-8.2)
[2022-07-27 17:09] VITALS: RESP 18
[2022-07-28] MEDS: HEPARIN NA (PORCINE) 5,000 UNITS/ML 1ML VIAL SQ SCH ×2 (06:03→13:01)
[2022-07-28 11:58] VITALS: PULSE 88
[2022-07-28 14:23] VITALS: BP 134/87; TEMP 98.2
== END 2022-07-28 17:20 | disposition home or self-care (01) ==
LOC: JER 10:37 → JERBED 16:55 → J4W 07-27 18:21
PROVIDERS: ADMIT Internal Medicine; ATTEND Internal Medicine
PROC: 3E023GC Introduction of Other Therapeutic Substance into Muscle, Percutaneous Approach (ICD-10-PCS; principal; 2022-07-26)
PROC: 3E0337Z Introduction of Electrolytic and Water Balance Substance into Peripheral Vein, Percutaneous Approach (ICD-10-PCS; 2022-07-26)
DX: N17.9 Acute kidney failure, unspecified (principal); R55 Syncope and collapse; E86.0 Dehydration; N20.0 Calculus of kidney; I10 Essential (primary) hypertension; R79.9 Abnormal finding of blood chemistry, unspecified; Z88.0 Allergy status to penicillin
CPT/HCPCS: 0241U-QW; 36415; 70450-TC; 71045-TC-FY; 80053; 81003; 83735; 84100; 84443; 84484; 85025; 85610; 85730; 86850; 86900; 86901; 87086; 93005; 93010; 96372; 99285-25; G0378; J1644

== ENCOUNTER 2022-10-01 18:05 | Inpatient (IN) | payer OTHER ==
[2022-10-01 21:24] LABS: BASO % 0.6 % (0-2.0); EOS % 3.4 % (0-4.5); HEMATOCRIT 39.9 % (35.4-49); LYMPH % 30.8 % (8-40); MCH 29.7 pg (25.7-33.7); MCHC 35.2 g/dl (32.0-35.9); MEAN CELL VOLUME 84.4 fl (80-96); MEAN PLT VOLUME 6.9 fl (7.5-11.1); MONO % 7.3 % (3.8-10.2); NEUT % 57.9 % (42.8-82.8); PLATELET COUNT 232 10^3/uL (134-434); RBC 4.72 M/mm3 (4.00-5.60); RDW 13.6 % (11.9-15.9)
[2022-10-01 21:42] LABS: ALBUMIN 4.4 g/dl (3.4-5.0); BLOOD UREA NITROGEN 25.4 mg/dL (7-18); MAGNESIUM 2.4 mg/dL (1.8-2.4)
[2022-10-01 21:45] LABS: CREATININE 1.7 mg/dL (0.55-1.3); PHOSPHOROUS 3.2 mg/dL (2.5-4.9)
[2022-10-01 21:46] LABS: TOT PROT 8.2 g/dl (6.4-8.2)
[2022-10-01 21:47] LABS: BILIRUBIN,TOTAL 0.6 mg/dL (0.2-1)
[2022-10-02] MEDS ORDERED: SODIUM CHLORIDE 1,000 ML IV SCH (01:45)
[2022-10-02 01:56] LABS: EPI CELLS 4 /uL (0-25.1); HYALINE CASTS 1 /uL (0-3.1); PH,URINE 5.5 (5.0-8.0); URINE APPEARANCE CLEAR; URINE BACTERIA 20 /uL (0-1359); URINE BILIRUBIN NEGATIVE (NEGATIVE); URINE COLOR YELLOW; URINE GLUCOSE (UA) NEGATIVE (NEGATIVE); URINE KETONE NEGATIVE (NEGATIVE); URINE LEUK ESTERASE TRACE (NEGATIVE); URINE NITRITE NEGATIVE (NEGATIVE); URINE PROTEIN 1+ (NEGATIVE); URINE RBC 589 /uL (0-23.9); URINE WBC 30 /uL (0-25.8)
[2022-10-02] MEDS ORDERED: HEPARIN NA (PORCINE) 5,000 UNITS/ML 1ML VIAL SQ SCH (06:00)
[2022-10-02] MEDS: INSULIN SLIDING SCALE (NOVOLOG) 1 VIAL SQ SCH ×4 (07:48→22:00)
[2022-10-02 08:30] LABS: BASO % 0.4 % (0-2.0); EOS % 3.8 % (0-4.5); HEMATOCRIT 35.4 % (35.4-49); HEMOGLOBIN 12.7 GM/dL (11.7-16.9); LYMPH % 37.4 % (8-40); MCH 30.2 pg (25.7-33.7); MCHC 35.8 g/dl (32.0-35.9); MEAN CELL VOLUME 84.6 fl (80-96); MEAN PLT VOLUME 7.3 fl (7.5-11.1); MONO % 9.4 % (3.8-10.2); PLATELET COUNT 210 10^3/uL (134-434); RBC 4.18 M/mm3 (4.00-5.60)
[2022-10-02] MEDS ORDERED: TAMSULOSIN HCL 0.4 MG CAP PO SCH (08:30)
[2022-10-02 08:34] LABS: INR 1.02 (0.83-1.09); PROTHROMBIN TIME (PATIENT) 11.8 SEC (9.7-13.0)
[2022-10-02 08:55] LABS: CALCIUM 9.7 mg/dL (8.5-10.1)
[2022-10-02 08:56] LABS: ALBUMIN 3.7 g/dl (3.4-5.0); BLOOD UREA NITROGEN 26.8 mg/dL (7-18); MAGNESIUM 2.4 mg/dL (1.8-2.4)
[2022-10-02 08:59] LABS: CREATININE 1.6 mg/dL (0.55-1.3); PHOSPHOROUS 3.4 mg/dL (2.5-4.9)
[2022-10-02 09:00] LABS: BILIRUBIN,TOTAL 0.6 mg/dL (0.2-1)
[2022-10-02] MEDS ORDERED: DOCUSATE SODIUM 100 MG CAPSULE (FP) PO ONE ×2 (10:13→11:24)
[2022-10-02] MEDS ORDERED: amLODIPine BESYLATE 10 MG TABLET (FP) ONE (11:23)
[2022-10-02] MEDS ORDERED: ASPIRIN 81 MG CHEWABLE TABLETS ONE (11:24)
[2022-10-02] MEDS: ASPIRIN 81 MG CHEWABLE TABLETS PO SCH (11:24)
[2022-10-02] MEDS: amLODIPine BESYLATE 10 MG TABLET (FP) PO SCH (11:25)
[2022-10-02] MEDS ORDERED: SODIUM CHLORIDE 0.45% 1,000 ML IV SCH (14:00)
[2022-10-02] MEDS ORDERED: ATORVASTATIN CA 20 MG TABLET (FP) PO SCH (22:00)
[2022-10-02] MEDS ORDERED: DONEPEZIL HCL 10 MG TABLET (FP) PO SCH (22:00)
[2022-10-03 01:23] VITALS: BMI 27.3
[2022-10-03 09:10] LABS: BLOOD UREA NITROGEN 18.6 mg/dL (7-18); CALCIUM 9.6 mg/dL (8.5-10.1)
[2022-10-03] MEDS: ASPIRIN 81 MG CHEWABLE TABLETS PO SCH (09:12)
[2022-10-03] MEDS: amLODIPine BESYLATE 10 MG TABLET (FP) PO SCH (09:12)
[2022-10-03 09:13] LABS: PHOSPHOROUS 3.9 mg/dL (2.5-4.9)
[2022-10-03 09:14] LABS: BILIRUBIN,TOTAL 0.7 mg/dL (0.2-1); CREATININE 1.4 mg/dL (0.55-1.3); TOT PROT 7.5 g/dl (6.4-8.2)
[2022-10-03] MEDS: INSULIN SLIDING SCALE (NOVOLOG) 1 VIAL SQ SCH ×4 (09:23→21:11)
[2022-10-03] MEDS ORDERED: LACTATED RINGERS SOLUTION 1,000 ML/1,000 ML INFUS.BAG IV SCH (09:30)
[2022-10-03 10:26] LABS: BASO % 0.6 % (0-2.0); EOS % 4.1 % (0-4.5); HEMATOCRIT 37.4 % (35.4-49); HEMOGLOBIN 13.3 GM/dL (11.7-16.9); LYMPH % 35.6 % (8-40); MCH 29.9 pg (25.7-33.7); MCHC 35.5 g/dl (32.0-35.9); MEAN CELL VOLUME 84.3 fl (80-96); MEAN PLT VOLUME 7.1 fl (7.5-11.1); MONO % 7.3 % (3.8-10.2); NEUT % 52.4 % (42.8-82.8); PLATELET COUNT 213 10^3/uL (134-434); RBC 4.43 M/mm3 (4.00-5.60); RDW 13.8 % (11.9-15.9); WHITE BLOOD COUNT 7.2 K/mm3 (4.0-10.0)
[2022-10-03] MEDS ORDERED: PROPOFOL 20 ML ONE (14:28)
[2022-10-03] MEDS ORDERED: SUCCINYLCHOLINE CHLORIDE 200 MG/10 ML SYRINGE ONE (14:38)
[2022-10-03] MEDS ORDERED: ceFAZolin SODIUM 1 GM VIAL IVPB ONE (14:45)
[2022-10-03] MEDS ORDERED: IOHEXOL 300 MG/ML INFUS..BTL IJ ONE (15:16)
[2022-10-03] MEDS ORDERED: ONDANSETRON 4 MG/2 ML VIAL ONE (15:16)
[2022-10-03] MEDS ORDERED: DEXAMETHASONE SOD PHOSPHATE 4 MG/1 ML VIAL ONE (15:16)
[2022-10-03] MEDS ORDERED: KETOROLAC TROMETHAMINE 30 MG/1 ML VIAL ONE (15:16)
[2022-10-03] MEDS ORDERED: ONDANSETRON 4 MG/2 ML VIAL IVPUSH PRN (15:41)
[2022-10-03] MEDS: LACTATED RINGERS SOLUTION 1,000 ML/1,000 ML INFUS.BAG IV SCH (19:03)
[2022-10-03] MEDS: oxyCODONE HCL 5 MG TABLET PO PRN (21:10)
[2022-10-03] MEDS: ATORVASTATIN CA 20 MG TABLET (FP) PO SCH (21:11)
[2022-10-03] MEDS: DONEPEZIL HCL 10 MG TABLET (FP) PO SCH (21:11)
[2022-10-04] MEDS: LACTATED RINGERS SOLUTION 1,000 ML/1,000 ML INFUS.BAG IV SCH ×2 (01:26→16:39)
[2022-10-04] MEDS: INSULIN SLIDING SCALE (NOVOLOG) 1 VIAL SQ SCH ×4 (06:42→22:47)
[2022-10-04] MEDS: amLODIPine BESYLATE 10 MG TABLET (FP) PO SCH (09:26)
[2022-10-04 09:30] LABS: BASO % 0.1 % (0-2.0); HEMATOCRIT 34.6 % (35.4-49); HEMOGLOBIN 12.4 GM/dL (11.7-16.9); LYMPH % 10.1 % (8-40); MCH 29.7 pg (25.7-33.7); MCHC 35.7 g/dl (32.0-35.9); MEAN CELL VOLUME 83.2 fl (80-96); MEAN PLT VOLUME 7.3 fl (7.5-11.1); MONO % 4.5 % (3.8-10.2); NEUT % 85.3 % (42.8-82.8); PLATELET COUNT 210 10^3/uL (134-434); RBC 4.16 M/mm3 (4.00-5.60); RDW 13.9 % (11.9-15.9); WHITE BLOOD COUNT 9.5 K/mm3 (4.0-10.0)
[2022-10-04 09:44] LABS: CALCIUM 9.2 mg/dL (8.5-10.1)
[2022-10-04 09:45] LABS: ALBUMIN 3.7 g/dl (3.4-5.0); BLOOD UREA NITROGEN 20.9 mg/dL (7-18); MAGNESIUM 2.2 mg/dL (1.8-2.4)
[2022-10-04 09:48] LABS: CREATININE 1.6 mg/dL (0.55-1.3); PHOSPHOROUS 3.4 mg/dL (2.5-4.9)
[2022-10-04 09:49] LABS: BILIRUBIN,TOTAL 0.5 mg/dL (0.2-1)
[2022-10-04] MEDS: oxyCODONE HCL 5 MG TABLET PO PRN (12:33)
[2022-10-04] MEDS ORDERED: TAMSULOSIN HCL 0.4 MG CAP PO SCH (13:50)
[2022-10-04] MEDS: TAMSULOSIN HCL 0.4 MG CAP PO SCH (15:10)
[2022-10-04] MEDS: ACETAMINOPHEN 325 MG TABLET (FP) PO PRN (18:56)
[2022-10-04] MEDS ORDERED: INSULIN (NOVOLOG) ASPART 100 UNITS/ML 10ML VIAL ONE (21:35)
[2022-10-04] MEDS: ATORVASTATIN CA 20 MG TABLET (FP) PO SCH (22:47)
[2022-10-04] MEDS: DONEPEZIL HCL 10 MG TABLET (FP) PO SCH (22:47)
[2022-10-04] MEDS: CEPHALEXIN MONOHYDRATE 500 MG CAPSULE (UD) PO SCH (22:47)
[2022-10-05] MEDS: LACTATED RINGERS SOLUTION 1,000 ML/1,000 ML INFUS.BAG IV SCH ×2 (06:47→16:37)
[2022-10-05] MEDS: INSULIN SLIDING SCALE (NOVOLOG) 1 VIAL SQ SCH ×4 (07:14→21:46)
[2022-10-05] MEDS: TAMSULOSIN HCL 0.4 MG CAP PO SCH (08:55)
[2022-10-05] MEDS: amLODIPine BESYLATE 10 MG TABLET (FP) PO SCH (09:04)
[2022-10-05] MEDS: CEPHALEXIN MONOHYDRATE 500 MG CAPSULE (UD) PO SCH ×2 (09:05→21:45)
[2022-10-05] MEDS: ACETAMINOPHEN 325 MG TABLET (FP) PO PRN (09:21)
[2022-10-05 09:24] LABS: BASO % 0.3 % (0-2.0); EOS % 2.9 % (0-4.5); HEMATOCRIT 33.2 % (35.4-49); HEMOGLOBIN 12.2 GM/dL (11.7-16.9); LYMPH % 25.1 % (8-40); MCH 31.9 pg (25.7-33.7); MCHC 36.7 g/dl (32.0-35.9); MEAN PLT VOLUME 7.2 fl (7.5-11.1); MONO % 8.7 % (3.8-10.2); PLATELET COUNT 191 10^3/uL (134-434); RBC 3.82 M/mm3 (4.00-5.60); RDW 13.8 % (11.9-15.9); WHITE BLOOD COUNT 7.7 K/mm3 (4.0-10.0)
[2022-10-05 09:58] LABS: CALCIUM 9.2 mg/dL (8.5-10.1)
[2022-10-05 09:59] LABS: ALBUMIN 3.5 g/dl (3.4-5.0); MAGNESIUM 2.2 mg/dL (1.8-2.4)
[2022-10-05 10:02] LABS: CREATININE 1.4 mg/dL (0.55-1.3)
[2022-10-05 10:04] LABS: PHOSPHOROUS 2.8 mg/dL (2.5-4.9)
[2022-10-05 10:06] LABS: BILIRUBIN,TOTAL 0.8 mg/dL (0.2-1); TOT PROT 6.7 g/dl (6.4-8.2)
[2022-10-05] MEDS ORDERED: INSULIN (NOVOLOG) ASPART 100 UNITS/ML 10ML VIAL ONE ×2 (17:55→21:25)
[2022-10-05] MEDS: DONEPEZIL HCL 10 MG TABLET (FP) PO SCH (21:45)
[2022-10-05] MEDS: ATORVASTATIN CA 20 MG TABLET (FP) PO SCH (21:46)
[2022-10-06] MEDS: INSULIN SLIDING SCALE (NOVOLOG) 1 VIAL SQ SCH (06:24)
[2022-10-06] MEDS: TAMSULOSIN HCL 0.4 MG CAP PO SCH (09:02)
[2022-10-06] MEDS: CEPHALEXIN MONOHYDRATE 500 MG CAPSULE (UD) PO SCH (09:02)
[2022-10-06] MEDS: amLODIPine BESYLATE 10 MG TABLET (FP) PO SCH (09:02)
[2022-10-06 10:18] VITALS: BP 120/72; PULSE 86; RESP 20; TEMP 98.2
== END 2022-10-06 11:36 | disposition home health service (06) | DRG 661 ==
LOC: JER 18:05 → JERBED 23:06 → J6S 10-02 23:57
PROVIDERS: ADMIT Internal Medicine; ATTEND Internal Medicine
PROC: 0T788DZ Dilation of Bilateral Ureters with Intraluminal Device, Via Natural or Artificial Opening Endoscopic (ICD-10-PCS; principal; 2022-10-04)
PROC: BT14ZZZ Fluoroscopy of Kidneys, Ureters and Bladder (ICD-10-PCS; 2022-10-04)
PROC: 0TF68ZZ Fragmentation in Right Ureter, Via Natural or Artificial Opening Endoscopic (ICD-10-PCS; 2022-10-04)
DX: N13.2 Hydronephrosis with renal and ureteral calculous obstruction (principal); N17.9 Acute kidney failure, unspecified; I12.9 Hypertensive chronic kidney disease with stage 1 through stage 4 chronic kidney disease, or unspecified chronic kidney disease; N18.9 Chronic kidney disease, unspecified; Z79.84 Long term (current) use of oral hypoglycemic drugs; F03.90 Unspecified dementia, unspecified severity, without behavioral disturbance, psychotic disturbance, mood disturbance, and anxiety; E78.5 Hyperlipidemia, unspecified; Z88.0 Allergy status to penicillin; E11.22 Type 2 diabetes mellitus with diabetic chronic kidney disease; R31.29 Other microscopic hematuria
CPT/HCPCS: 0241U-QW; 36415; 71045-TC-FY; 74176-TC; 76000-TC-FY; 76775-TC; 80053; 81003; 82962; 83735; 84100; 85025; 85610; 86850; 86900; 86901; 87086; 93005; 93010; 94760; 99285-25; C2617

== ENCOUNTER 2022-10-13 13:13 | Inpatient (IN) | payer OTHER ==
[2022-10-13] MEDS ORDERED: SODIUM CHLORIDE 1,000 ML IV STA (14:44)
[2022-10-13 15:27] LABS: BASO % 0.6 % (0-2.0); EOS % 2.4 % (0-4.5); HEMATOCRIT 33.9 % (35.4-49); HEMOGLOBIN 11.8 GM/dL (11.7-16.9); LYMPH % 12.9 % (8-40); MCH 29.6 pg (25.7-33.7); MCHC 34.8 g/dl (32.0-35.9); MEAN CELL VOLUME 85.2 fl (80-96); MEAN PLT VOLUME 6.4 fl (7.5-11.1); MONO % 5.1 % (3.8-10.2); PLATELET COUNT 221 10^3/uL (134-434); RBC 3.98 M/mm3 (4.00-5.60); RDW 13.7 % (11.9-15.9); WHITE BLOOD COUNT 10.7 K/mm3 (4.0-10.0)
[2022-10-13 15:41] LABS: ACTIVATED PTT 24.1 SECONDS (25.2-36.5); INR 0.93 (0.83-1.09); PROTHROMBIN TIME (PATIENT) 10.8 SEC (9.7-13.0)
[2022-10-13 15:47] LABS: CALCIUM 10.3 mg/dL (8.5-10.1)
[2022-10-13 15:48] LABS: ALBUMIN 3.7 g/dl (3.4-5.0); BLOOD UREA NITROGEN 30.8 mg/dL (7-18)
[2022-10-13 15:51] LABS: CREATININE 1.6 mg/dL (0.55-1.3)
[2022-10-13 15:52] LABS: BILIRUBIN,TOTAL 0.4 mg/dL (0.2-1)
[2022-10-13 15:53] LABS: TOT PROT 7.3 g/dl (6.4-8.2)
[2022-10-13 16:46] LABS: EPI CELLS 33 /uL (0-25.1); HYALINE CASTS 3 /uL (0-3.1); PH,URINE 5.5 (5.0-8.0); URINE APPEARANCE CLOUDY; URINE BACTERIA 15 /uL (0-1359); URINE BILIRUBIN NEGATIVE (NEGATIVE); URINE COLOR YELLOW; URINE GLUCOSE (UA) NEGATIVE (NEGATIVE); URINE KETONE NEGATIVE (NEGATIVE); URINE LEUK ESTERASE 2+ (NEGATIVE); URINE NITRITE NEGATIVE (NEGATIVE); URINE PROTEIN 3+ (NEGATIVE); URINE RBC 6887 /uL (0-23.9); URINE WBC 113 /uL (0-25.8)
[2022-10-14] MEDS: INSULIN SLIDING SCALE (NOVOLOG) 1 VIAL SQ SCH ×5 (00:09→21:15)
[2022-10-14] MEDS: LACTATED RINGERS SOLUTION 1,000 ML/1,000 ML INFUS.BAG IV SCH ×2 (00:10→22:08)
[2022-10-14 05:14] VITALS: BMI 26.5
[2022-10-14 07:34] LABS: HEMATOCRIT 29.1 % (35.4-49); HEMOGLOBIN 10.9 GM/dL (11.7-16.9); MCH 31.1 pg (25.7-33.7); MCHC 37.5 g/dl (32.0-35.9); MEAN CELL VOLUME 82.9 fl (80-96); MEAN PLT VOLUME 7.1 fl (7.5-11.1); PLATELET COUNT 217 10^3/uL (134-434); RBC 3.51 M/mm3 (4.00-5.60); RDW 13.7 % (11.9-15.9); WHITE BLOOD COUNT 7.6 K/mm3 (4.0-10.0)
[2022-10-14 08:30] LABS: ALBUMIN 3.2 g/dl (3.4-5.0); BILIRUBIN,TOTAL 0.8 mg/dL (0.2-1); BLOOD UREA NITROGEN 25.1 mg/dL (7-18); CREATININE 1.4 mg/dL (0.55-1.3); MAGNESIUM 2.2 mg/dL (1.8-2.4); PHOSPHOROUS 3.6 mg/dL (2.5-4.9); TOT PROT 6.3 g/dl (6.4-8.2)
[2022-10-14] MEDS: amLODIPine BESYLATE 10 MG TABLET (FP) PO SCH (10:30)
[2022-10-14] MEDS: LISINOPRIL 5 MG TABLET PO SCH (10:30)
[2022-10-14 21:17] VITALS: RESP 20
[2022-10-14] MEDS ORDERED: TAMSULOSIN HCL 0.4 MG CAP PO SCH (22:00)
[2022-10-14] MEDS ORDERED: DONEPEZIL HCL 10 MG TABLET (FP) PO SCH (22:00)
[2022-10-14] MEDS ORDERED: ATORVASTATIN CA 20 MG TABLET (FP) PO SCH (22:00)
[2022-10-15] MEDS: INSULIN SLIDING SCALE (NOVOLOG) 1 VIAL SQ SCH ×3 (06:16→16:38)
[2022-10-15 08:59] LABS: HEMATOCRIT 28.7 % (35.4-49); HEMOGLOBIN 10.4 GM/dL (11.7-16.9); MCH 30.1 pg (25.7-33.7); MCHC 36.2 g/dl (32.0-35.9); MEAN CELL VOLUME 83.2 fl (80-96); MEAN PLT VOLUME 6.7 fl (7.5-11.1); PLATELET COUNT 203 10^3/uL (134-434); RBC 3.45 M/mm3 (4.00-5.60); RDW 13.7 % (11.9-15.9); WHITE BLOOD COUNT 7.2 K/mm3 (4.0-10.0)
[2022-10-15 09:05] LABS: BLOOD UREA NITROGEN 21.1 mg/dL (7-18); CALCIUM 8.9 mg/dL (8.5-10.1); MAGNESIUM 1.9 mg/dL (1.8-2.4)
[2022-10-15 09:06] LABS: ALBUMIN 3.1 g/dl (3.4-5.0)
[2022-10-15 09:09] LABS: CREATININE 1.3 mg/dL (0.55-1.3); PHOSPHOROUS 3.2 mg/dL (2.5-4.9)
[2022-10-15 09:10] LABS: BILIRUBIN,TOTAL 0.4 mg/dL (0.2-1)
[2022-10-15] MEDS: amLODIPine BESYLATE 10 MG TABLET (FP) PO SCH (09:25)
[2022-10-15] MEDS: LISINOPRIL 5 MG TABLET PO SCH (09:25)
[2022-10-15 15:25] VITALS: BP 123/68; PULSE 76; TEMP 98.4
[2022-10-15] MEDS ORDERED: ASPIRIN COATED 81 MG TABLET.EC PO SCH (15:30)
[2022-10-16] MEDS ORDERED: amLODIPine BESYLATE 5 MG TABLET (FP) PO SCH (10:00)
== END 2022-10-15 19:36 | disposition home or self-care (01) | DRG 641 ==
LOC: JER 13:13 → JERBED 19:36 → OBSVTOIN 20:41 → J4W 10-14 01:23 → J4S 10-15 18:54 → J4W 10-15 18:55
PROVIDERS: ADMIT Internal Medicine; ATTEND Internal Medicine
DX: E86.0 Dehydration (principal); N13.30 Unspecified hydronephrosis; N17.9 Acute kidney failure, unspecified; R55 Syncope and collapse; F03.90 Unspecified dementia, unspecified severity, without behavioral disturbance, psychotic disturbance, mood disturbance, and anxiety; I12.9 Hypertensive chronic kidney disease with stage 1 through stage 4 chronic kidney disease, or unspecified chronic kidney disease; N18.30 Chronic kidney disease, stage 3 unspecified; E78.5 Hyperlipidemia, unspecified; Z79.84 Long term (current) use of oral hypoglycemic drugs; R31.9 Hematuria, unspecified
CPT/HCPCS: 0241U-QW; 36415; 70450-TC; 71045-TC-FY; 72125-TC; 80053; 81003; 82962; 83735; 84100; 84484; 85025; 85027; 85610; 85730; 87086; 93005; 93010; 93306-TC; 93880-TC; 99285-25; G0378

== ENCOUNTER 2023-07-11 12:40 | Inpatient (IN) | payer OTHER ==
[2023-07-11 12:49] VITALS: BMI 26.8
[2023-07-11 16:57] LABS: BASO % 0.5 % (0-2.0); EOS % 2.3 % (0-4.5); HEMATOCRIT 42.3 % (35.4-49); HEMOGLOBIN 14.5 GM/dL (11.7-16.9); LYMPH % 22.6 % (8-40); MCHC 34.3 g/dl (32.0-35.9); MEAN CELL VOLUME 81.5 fl (80-96); MEAN PLT VOLUME 7.1 fl (7.5-11.1); MONO % 12.1 % (3.8-10.2); NEUT % 62.5 % (42.8-82.8); PLATELET COUNT 197 10^3/uL (134-434); RDW 14.9 % (11.9-15.9); WHITE BLOOD COUNT 7.8 K/mm3 (4.0-10.0)
[2023-07-11 16:58] LABS: EPI CELLS >36 /uL (0-25.1); HYALINE CASTS 2 /uL (0-3.1); PH,URINE 5.5 (5.0-8.0); URINE APPEARANCE CLOUDY; URINE BACTERIA 5 /uL (0-1359); URINE BILIRUBIN NEGATIVE (NEGATIVE); URINE COLOR DK YELLOW; URINE GLUCOSE (UA) NEGATIVE (NEGATIVE); URINE KETONE TRACE (NEGATIVE); URINE LEUK ESTERASE 1+ (NEGATIVE); URINE NITRITE NEGATIVE (NEGATIVE); URINE PROTEIN 3+ (NEGATIVE); URINE RBC 5033 /uL (0-23.9); URINE UROBILINOGEN 0.2 mg/dL (0.2-1.0); URINE WBC 89 /uL (0-25.8)
[2023-07-11] MEDS ORDERED: SODIUM CHLORIDE 0.9% 500 ML INFUS.BAG IV ONE (17:11)
[2023-07-11 17:26] LABS: CHLORIDE 107 mmol/L (98-107); POTASSIUM 3.9 mmol/L (3.5-5.1); SODIUM 139 mmol/L (136-145)
[2023-07-11 17:28] LABS: ALBUMIN 3.6 g/dl (3.4-5.0); ANION GAP 9 mmol/L (4-13); BLOOD UREA NITROGEN 34.7 mg/dL (7-18); CALCIUM 9.6 mg/dL (8.5-10.1); CO2 23 mmol/L (21-32); GLUCOSE,RANDOM 106 mg/dL (74-106)
[2023-07-11 17:32] LABS: CREATININE 1.9 mg/dL (0.55-1.3); SGOT/AST 26 U/L (15-37); SGPT/ALT 29 U/L (13-61)
[2023-07-11 17:33] LABS: BILIRUBIN,TOTAL 0.8 mg/dL (0.2-1); TOT PROT 7.7 g/dl (6.4-8.2)
[2023-07-11 17:35] LABS: ALK PHOS 89 U/L (45-117)
[2023-07-11 17:47] LABS: EPI CELLS >36 /uL (0-25.1); HYALINE CASTS 6 /uL (0-3.1); PH,URINE 5.5 (5.0-8.0); URINE APPEARANCE TURBID; URINE BACTERIA 3 /uL (0-1359); URINE BILIRUBIN NEGATIVE (NEGATIVE); URINE COLOR DK YELLOW; URINE GLUCOSE (UA) NEGATIVE (NEGATIVE); URINE KETONE TRACE (NEGATIVE); URINE LEUK ESTERASE 1+ (NEGATIVE); URINE NITRITE NEGATIVE (NEGATIVE); URINE PROTEIN 3+ (NEGATIVE); URINE RBC 5315 /uL (0-23.9); URINE UROBILINOGEN 0.2 mg/dL (0.2-1.0); URINE WBC 123 /uL (0-25.8)
[2023-07-11] MEDS ORDERED: CEFTRIAXONE 1 GM/50 ML BAG ONE (18:19)
[2023-07-11 18:30] LABS: INR 1.11 (0.83-1.09); PROTHROMBIN TIME (PATIENT) 12.9 SEC (9.7-13.0)
[2023-07-11 18:32] LABS: ACTIVATED PTT 24.9 SECONDS (25.2-36.5)
[2023-07-11] MEDS ORDERED: HEPARIN NA (PORCINE) 5,000 UNITS/ML 1ML VIAL IVPUSH PRN (18:47)
[2023-07-11] MEDS ORDERED: HEPARIN INFUSION - 25,000 UNITS/500 ML INFUS.BAG IVPB ONE (18:55)
[2023-07-11] MEDS ORDERED: HEPARIN NA (PORCINE) 5,000 UNITS/ML 1ML VIAL ONE (18:55)
[2023-07-11] MEDS: HEPARIN INFUSION - 25,000 UNITS/500 ML INFUS.BAG IVPB SCH (19:00)
[2023-07-11] MEDS ORDERED: REMDESIVIR 200 MG in SODIUM CHLORIDE 250 ML IVPB ONE (23:00)
[2023-07-12] MEDS: LACTATED RINGERS SOLUTION 1,000 ML/1,000 ML INFUS.BAG IV SCH ×2 (00:42→20:55)
[2023-07-12] MEDS: INSULIN SLIDING SCALE (NOVOLOG) 1 VIAL SQ SCH ×4 (07:56→21:39)
[2023-07-12] MEDS ORDERED: TAMSULOSIN HCL 0.4 MG CAP ONE (08:34)
[2023-07-12] MEDS: TAMSULOSIN HCL 0.4 MG CAP PO SCH (08:35)
[2023-07-12] MEDS ORDERED: DEXAMETHASONE SOD PHOSPHATE 10 MG/1 ML VIAL IVPUSH SCH (10:00)
[2023-07-12 11:14] LABS: BASO % 0.6 % (0-2.0); EOS % 5.5 % (0-4.5); HEMATOCRIT 35.3 % (35.4-49); HEMOGLOBIN 12.4 GM/dL (11.7-16.9); LYMPH % 33.9 % (8-40); MCH 28.6 pg (25.7-33.7); MCHC 35.2 g/dl (32.0-35.9); MEAN CELL VOLUME 81.2 fl (80-96); MONO % 10.7 % (3.8-10.2); NEUT % 49.3 % (42.8-82.8); PLATELET COUNT 176 10^3/uL (134-434); RBC 4.35 M/mm3 (4.00-5.60); RDW 14.6 % (11.9-15.9); WHITE BLOOD COUNT 4.8 K/mm3 (4.0-10.0)
[2023-07-12] MEDS ORDERED: DEXAMETHASONE SOD PHOSPHATE 10 MG/1 ML VIAL ONE (11:23)
[2023-07-12] MEDS: HEPARIN NA (PORCINE) 5,000 UNITS/ML 1ML VIAL IVPUSH PRN (11:32)
[2023-07-12] MEDS ORDERED: HEPARIN NA (PORCINE) 5,000 UNITS/ML 1ML VIAL ONE (11:33)
[2023-07-12 11:56] LABS: POTASSIUM 3.7 mmol/L (3.5-5.1)
[2023-07-12 12:00] LABS: BLOOD UREA NITROGEN 28.1 mg/dL (7-18); CALCIUM 8.4 mg/dL (8.5-10.1); MAGNESIUM 2.2 mg/dL (1.8-2.4)
[2023-07-12 12:03] LABS: CREATININE 1.5 mg/dL (0.55-1.3); PHOSPHOROUS 2.9 mg/dL (2.5-4.9)
[2023-07-12 12:04] LABS: BILIRUBIN,TOTAL 0.4 mg/dL (0.2-1); TOT PROT 6.7 g/dl (6.4-8.2)
[2023-07-12] MEDS ORDERED: HEPARIN INFUSION - 25,000 UNITS/500 ML INFUS.BAG IVPB ONE (13:49)
[2023-07-12 18:15] LABS: HEMATOCRIT 36.3 % (35.4-49); HEMOGLOBIN 12.5 GM/dL (11.7-16.9); MCH 28.2 pg (25.7-33.7); MCHC 34.5 g/dl (32.0-35.9); MEAN CELL VOLUME 81.8 fl (80-96); MEAN PLT VOLUME 6.6 fl (7.5-11.1); PLATELET COUNT 185 10^3/uL (134-434); RBC 4.44 M/mm3 (4.00-5.60); WHITE BLOOD COUNT 5.2 K/mm3 (4.0-10.0)
[2023-07-12] MEDS: HEPARIN INFUSION - 25,000 UNITS/500 ML INFUS.BAG IVPB SCH (19:20)
[2023-07-12] MEDS ORDERED: amLODIPine BESYLATE 5 MG TABLET (FP) PO ONE (20:24)
[2023-07-12] MEDS ORDERED: ACETAMINOPHEN 325 MG TABLET (FP) PO PRN (20:26)
[2023-07-12] MEDS ORDERED: ACETAMINOPHEN 325 MG TABLET (FP) ONE (20:33)
[2023-07-12] MEDS ORDERED: amLODIPine BESYLATE 5 MG TABLET (FP) ONE (20:33)
[2023-07-12] MEDS ORDERED: INSULIN (NOVOLOG) ASPART 100 UNITS/ML 10ML VIAL ONE (21:31)
[2023-07-12] MEDS ORDERED: DONEPEZIL HCL 5 MG TABLET (FP) ONE (21:32)
[2023-07-12] MEDS: DONEPEZIL HCL 10 MG TABLET (FP) PO SCH (21:39)
[2023-07-13] MEDS: REMDESIVIR 100 MG in SODIUM CHLORIDE 250 ML IVPB SCH ×2 (00:28→23:03)
[2023-07-13] MEDS: INSULIN SLIDING SCALE (NOVOLOG) 1 VIAL SQ SCH ×3 (06:57→16:37)
[2023-07-13 08:42] LABS: POTASSIUM 3.6 mmol/L (3.5-5.1)
[2023-07-13 08:43] LABS: BASO % 0.6 % (0-2.0); EOS % 4.1 % (0-4.5); HEMATOCRIT 36.6 % (35.4-49); HEMOGLOBIN 12.9 GM/dL (11.7-16.9); LYMPH % 34.2 % (8-40); MCH 28.8 pg (25.7-33.7); MCHC 35.3 g/dl (32.0-35.9); MEAN CELL VOLUME 81.5 fl (80-96); MEAN PLT VOLUME 7.4 fl (7.5-11.1); MONO % 8.9 % (3.8-10.2); NEUT % 52.2 % (42.8-82.8); PLATELET COUNT 193 10^3/uL (134-434); RBC 4.49 M/mm3 (4.00-5.60); RDW 14.9 % (11.9-15.9)
[2023-07-13 08:52] LABS: ALBUMIN 3.4 g/dl (3.4-5.0); BLOOD UREA NITROGEN 27.3 mg/dL (7-18); CALCIUM 9.2 mg/dL (8.5-10.1)
[2023-07-13 08:55] LABS: CREATININE 1.5 mg/dL (0.55-1.3); PHOSPHOROUS 3.9 mg/dL (2.5-4.9)
[2023-07-13 08:56] LABS: BILIRUBIN,TOTAL 0.4 mg/dL (0.2-1)
[2023-07-13] MEDS: TAMSULOSIN HCL 0.4 MG CAP PO SCH (09:09)
[2023-07-13] MEDS: amLODIPine BESYLATE 5 MG TABLET (FP) PO SCH (09:09)
[2023-07-13] MEDS: HEPARIN NA (PORCINE) 5,000 UNITS/ML 1ML VIAL IVPUSH PRN (09:10)
[2023-07-13] MEDS: LACTATED RINGERS SOLUTION 1,000 ML/1,000 ML INFUS.BAG IV SCH (11:25)
[2023-07-13] MEDS: DONEPEZIL HCL 10 MG TABLET (FP) PO SCH (22:55)
[2023-07-14] MEDS: INSULIN SLIDING SCALE (NOVOLOG) 1 VIAL SQ SCH ×5 (06:56→21:57)
[2023-07-14] MEDS: LACTATED RINGERS SOLUTION 1,000 ML/1,000 ML INFUS.BAG IV SCH (06:56)
[2023-07-14 07:44] LABS: BASO % 0.7 % (0-2.0); EOS % 3.3 % (0-4.5); HEMATOCRIT 33.1 % (35.4-49); HEMOGLOBIN 11.7 GM/dL (11.7-16.9); LYMPH % 26.7 % (8-40); MCH 28.6 pg (25.7-33.7); MCHC 35.3 g/dl (32.0-35.9); MONO % 8.5 % (3.8-10.2); NEUT % 60.8 % (42.8-82.8); PLATELET COUNT 190 10^3/uL (134-434); RBC 4.09 M/mm3 (4.00-5.60); RDW 14.6 % (11.9-15.9); WHITE BLOOD COUNT 5.4 K/mm3 (4.0-10.0)
[2023-07-14 07:46] LABS: POTASSIUM 3.6 mmol/L (3.5-5.1)
[2023-07-14 07:48] LABS: CALCIUM 8.8 mg/dL (8.5-10.1)
[2023-07-14 07:49] LABS: ALBUMIN 3.2 g/dl (3.4-5.0); BLOOD UREA NITROGEN 25.7 mg/dL (7-18)
[2023-07-14 07:52] LABS: CREATININE 1.5 mg/dL (0.55-1.3); PHOSPHOROUS 3.5 mg/dL (2.5-4.9)
[2023-07-14 07:53] LABS: TOT PROT 6.6 g/dl (6.4-8.2)
[2023-07-14 08:34] LABS: BILIRUBIN,TOTAL 0.4 mg/dL (0.2-1)
[2023-07-14] MEDS: TAMSULOSIN HCL 0.4 MG CAP PO SCH (10:01)
[2023-07-14] MEDS: amLODIPine BESYLATE 5 MG TABLET (FP) PO SCH (10:01)
[2023-07-14] MEDS ORDERED: amLODIPine BESYLATE 5 MG TABLET (FP) PO ONE (12:35)
[2023-07-14] MEDS: metoPROLOL SUCCINATE 25 MG TAB.SR.24H (FP) PO SCH (13:37)
[2023-07-14] MEDS: DONEPEZIL HCL 10 MG TABLET (FP) PO SCH (21:58)
[2023-07-15] MEDS: INSULIN SLIDING SCALE (NOVOLOG) 1 VIAL SQ SCH ×4 (06:03→23:06)
[2023-07-15] MEDS: TAMSULOSIN HCL 0.4 MG CAP PO SCH (09:28)
[2023-07-15] MEDS: amLODIPine BESYLATE 10 MG TABLET (FP) PO SCH (09:28)
[2023-07-15] MEDS: metoPROLOL SUCCINATE 25 MG TAB.SR.24H (FP) PO SCH (09:28)
[2023-07-15] MEDS: DONEPEZIL HCL 10 MG TABLET (FP) PO SCH (22:35)
[2023-07-16] MEDS: INSULIN SLIDING SCALE (NOVOLOG) 1 VIAL SQ SCH (06:05)
[2023-07-16 07:44] LABS: POTASSIUM 3.8 mmol/L (3.5-5.1)
[2023-07-16 07:56] LABS: CALCIUM 9.2 mg/dL (8.5-10.1)
[2023-07-16 07:57] LABS: ALBUMIN 2.9 g/dl (3.4-5.0); BLOOD UREA NITROGEN 27.7 mg/dL (7-18)
[2023-07-16 08:00] LABS: CREATININE 1.8 mg/dL (0.55-1.3); PHOSPHOROUS 3.6 mg/dL (2.5-4.9)
[2023-07-16 08:02] LABS: BILIRUBIN,TOTAL 0.3 mg/dL (0.2-1); TOT PROT 6.3 g/dl (6.4-8.2)
[2023-07-16 08:06] LABS: BASO % 0.6 % (0-2.0); EOS % 4.4 % (0-4.5); HEMATOCRIT 35.7 % (35.4-49); HEMOGLOBIN 12.4 GM/dL (11.7-16.9); LYMPH % 25.4 % (8-40); MCH 28.4 pg (25.7-33.7); MCHC 34.9 g/dl (32.0-35.9); MEAN CELL VOLUME 81.3 fl (80-96); MEAN PLT VOLUME 6.9 fl (7.5-11.1); NEUT % 62.6 % (42.8-82.8); PLATELET COUNT 212 10^3/uL (134-434); RBC 4.39 M/mm3 (4.00-5.60); RDW 14.7 % (11.9-15.9); WHITE BLOOD COUNT 6.6 K/mm3 (4.0-10.0)
[2023-07-16] MEDS: TAMSULOSIN HCL 0.4 MG CAP PO SCH (08:53)
[2023-07-16] MEDS: metoPROLOL SUCCINATE 25 MG TAB.SR.24H (FP) PO SCH (08:53)
[2023-07-16] MEDS: amLODIPine BESYLATE 10 MG TABLET (FP) PO SCH (08:53)
[2023-07-16 10:35] VITALS: BP 108/68; PULSE 97; RESP 18; TEMP 97.9
== END 2023-07-16 09:48 | disposition home or self-care (01) | DRG 178 ==
LOC: JER 12:40 → JERBED 19:45 → J4W 07-12 22:21
PROVIDERS: ADMIT Internal Medicine; ATTEND Internal Medicine
PROC: XW033E5 Introduction of Remdesivir Anti-infective into Peripheral Vein, Percutaneous Approach, New Technology Group 5 (ICD-10-PCS; principal; 2023-07-11)
DX: U07.1 COVID-19 (principal); N17.9 Acute kidney failure, unspecified; E11.9 Type 2 diabetes mellitus without complications; E78.5 Hyperlipidemia, unspecified; I48.91 Unspecified atrial fibrillation; I12.9 Hypertensive chronic kidney disease with stage 1 through stage 4 chronic kidney disease, or unspecified chronic kidney disease; E11.22 Type 2 diabetes mellitus with diabetic chronic kidney disease; N18.9 Chronic kidney disease, unspecified; N20.0 Calculus of kidney; R31.9 Hematuria, unspecified; Z87.442 Personal history of urinary calculi; Z88.0 Allergy status to penicillin; Z86.73 Personal history of transient ischemic attack (TIA), and cerebral infarction without residual deficits
CPT/HCPCS: 0241U-QW; 36415; 76775-TC; 80053; 80061; 81003; 82550; 82553; 82962; 83735; 84100; 84443; 84484; 85025; 85027; 85610; 85730; 86140; 87086; 93005; 93010; 93306-TC; 99285-25; J0248; J1100; J1644

== ENCOUNTER 2023-07-29 00:33 | Inpatient (IN) | payer OTHER ==
[2023-07-29 00:45] VITALS: BMI 29.0
[2023-07-29] MEDS ORDERED: KETOROLAC TROMETHAMINE 15 MG/ML VIAL IVPUSH ONE (01:59)
[2023-07-29] MEDS ORDERED: ONDANSETRON 4 MG/2 ML VIAL IVPUSH ONE (02:00)
[2023-07-29] MEDS ORDERED: KETOROLAC TROMETHAMINE 15 MG/ML VIAL ONE (03:11)
[2023-07-29 03:41] LABS: POTASSIUM 4.6 mmol/L (3.5-5.1)
[2023-07-29 03:43] LABS: BLOOD UREA NITROGEN 34.6 mg/dL (7-18); CALCIUM 10.1 mg/dL (8.5-10.1); MAGNESIUM 2.3 mg/dL (1.8-2.4)
[2023-07-29 03:44] LABS: ALBUMIN 3.4 g/dl (3.4-5.0)
[2023-07-29 03:46] LABS: CREATININE 2.1 mg/dL (0.55-1.3)
[2023-07-29 03:47] LABS: BILIRUBIN,TOTAL 0.5 mg/dL (0.2-1); TOT PROT 7.6 g/dl (6.4-8.2)
[2023-07-29] MEDS ORDERED: SODIUM CHLORIDE 0.9% 500 ML INFUS.BAG IV ONE (03:55)
[2023-07-29] MEDS ORDERED: LIDOCAINE 4% PATCH TP ONE ×2 (03:56→04:48)
[2023-07-29 04:17] LABS: EPI CELLS 14 /uL (0-25.1); HYALINE CASTS 1 /uL (0-3.1); PH,URINE 5.5 (5.0-8.0); URINE APPEARANCE CLEAR; URINE BACTERIA 18 /uL (0-1359); URINE BILIRUBIN NEGATIVE (NEGATIVE); URINE COLOR YELLOW; URINE GLUCOSE (UA) NEGATIVE (NEGATIVE); URINE KETONE NEGATIVE (NEGATIVE); URINE LEUK ESTERASE TRACE (NEGATIVE); URINE NITRITE NEGATIVE (NEGATIVE); URINE PROTEIN 2+ (NEGATIVE); URINE RBC 1852 /uL (0-23.9); URINE UROBILINOGEN 0.2 mg/dL (0.2-1.0); URINE WBC 40 /uL (0-25.8)
[2023-07-29 05:41] LABS: BASO % 0.4 % (0-2.0); EOS % 1.3 % (0-4.5); HEMATOCRIT 35.2 % (35.4-49); HEMOGLOBIN 12.1 GM/dL (11.7-16.9); LYMPH % 14.3 % (8-40); MCH 28.1 pg (25.7-33.7); MCHC 34.2 g/dl (32.0-35.9); MEAN CELL VOLUME 81.9 fl (80-96); MEAN PLT VOLUME 6.4 fl (7.5-11.1); PLATELET COUNT 239 10^3/uL (134-434); RDW 14.5 % (11.9-15.9); WHITE BLOOD COUNT 7.1 K/mm3 (4.0-10.0)
[2023-07-29 05:48] LABS: INR 0.99 (0.83-1.09); PROTHROMBIN TIME (PATIENT) 11.5 SEC (9.7-13.0)
[2023-07-29 05:51] LABS: ACTIVATED PTT 24.9 SECONDS (25.2-36.5)
[2023-07-29] MEDS ORDERED: ACETAMINOPHEN 1000 MG/100 ML BAG IVPB SCH (06:15)
[2023-07-29] MEDS ORDERED: SODIUM CHLORIDE 1,000 ML IV SCH ×2 (06:15→14:42)
[2023-07-29] MEDS ORDERED: INSULIN ASPART SLIDING SCALE (NOVOLOG) 1 VIAL SQ SCH (07:00)
[2023-07-29] MEDS ORDERED: ACETAMINOPHEN 1000 MG/100 ML BAG IVPB PRN ×2 (08:22→14:42)
[2023-07-29] MEDS ORDERED: TAMSULOSIN HCL 0.4 MG CAP PO SCH (08:30)
[2023-07-29] MEDS ORDERED: TAMSULOSIN HCL 0.4 MG CAP ONE (09:08)
[2023-07-29] MEDS ORDERED: amLODIPine BESYLATE 10 MG TABLET (FP) PO SCH (10:00)
[2023-07-29] MEDS ORDERED: ONDANSETRON 4 MG/2 ML VIAL IVPUSH PRN ×2 (10:07→14:42)
[2023-07-29] MEDS ORDERED: PROMETHAZINE HCL 25 MG/1 ML VIAL IVPB PRN ×2 (10:07→14:42)
[2023-07-29] MEDS ORDERED: LACTATED RINGERS SOLUTION 1,000 ML IV SCH ×2 (10:15→14:42)
[2023-07-29] MEDS ORDERED: PROPOFOL 20 ML ONE (13:23)
[2023-07-29] MEDS ORDERED: SODIUM CHLORIDE 0.9% P/F 10 ML VIAL IJ ONE (13:24)
[2023-07-29] MEDS ORDERED: DEXAMETHASONE SOD PHOSPHATE 4 MG/1 ML VIAL ONE (13:24)
[2023-07-29] MEDS ORDERED: LIDOCAINE HCL/PF 2% SDV 5ML VIAL ONE (13:24)
[2023-07-29] MEDS ORDERED: ceFAZolin SODIUM 1 GM VIAL ONE (13:24)
[2023-07-29] MEDS ORDERED: ETOMIDATE 20 MG/10 ML VIAL IVPUSH ONE (13:24)
[2023-07-29] MEDS ORDERED: ceFAZolin SODIUM 1 GM VIAL IVPB ONE (13:37)
[2023-07-29] MEDS ORDERED: GLYCOPYRROLATE 0.2 MG/1 ML VIAL ONE (13:55)
[2023-07-29] MEDS ORDERED: LIDOCAINE PATCH REMOVAL MC ONE ×2 (17:00)
[2023-07-29] MEDS: metoPROLOL SUCCINATE 25 MG TAB.SR.24H (FP) PO SCH (21:58)
[2023-07-29] MEDS ORDERED: metoPROLOL SUCCINATE 25 MG TAB.SR.24H (FP) PO SCH (22:00)
[2023-07-30] MEDS: TAMSULOSIN HCL 0.4 MG CAP PO SCH (10:14)
[2023-07-30 11:52] LABS: BASO % 0.1 % (0-2.0); HEMATOCRIT 29.6 % (35.4-49); HEMOGLOBIN 10.1 GM/dL (11.7-16.9); LYMPH % 13.1 % (8-40); MCHC 34.2 g/dl (32.0-35.9); MEAN CELL VOLUME 81.9 fl (80-96); MEAN PLT VOLUME 6.3 fl (7.5-11.1); MONO % 9.2 % (3.8-10.2); NEUT % 77.6 % (42.8-82.8); PLATELET COUNT 223 10^3/uL (134-434); RBC 3.61 M/mm3 (4.00-5.60); RDW 14.5 % (11.9-15.9); WHITE BLOOD COUNT 7.8 K/mm3 (4.0-10.0)
[2023-07-30 12:11] LABS: POTASSIUM 4.1 mmol/L (3.5-5.1)
[2023-07-30 12:18] LABS: CALCIUM 8.9 mg/dL (8.5-10.1)
[2023-07-30 12:20] LABS: MAGNESIUM 2.1 mg/dL (1.8-2.4)
[2023-07-30 12:22] LABS: CREATININE 1.8 mg/dL (0.55-1.3)
[2023-07-30 12:24] LABS: BILIRUBIN,TOTAL 0.4 mg/dL (0.2-1)
[2023-07-30 12:31] LABS: ALBUMIN 2.6 g/dl (3.4-5.0)
[2023-07-30] MEDS: metoPROLOL SUCCINATE 25 MG TAB.SR.24H (FP) PO SCH (21:47)
[2023-07-31] MEDS: TAMSULOSIN HCL 0.4 MG CAP PO SCH (08:31)
[2023-07-31 11:12] LABS: BASO % 0.6 % (0-2.0); EOS % 2.1 % (0-4.5); HEMATOCRIT 30.8 % (35.4-49); HEMOGLOBIN 10.6 GM/dL (11.7-16.9); LYMPH % 31.8 % (8-40); MCHC 34.3 g/dl (32.0-35.9); MEAN CELL VOLUME 81.6 fl (80-96); MEAN PLT VOLUME 6.1 fl (7.5-11.1); MONO % 7.2 % (3.8-10.2); NEUT % 58.3 % (42.8-82.8); PLATELET COUNT 237 10^3/uL (134-434); RBC 3.77 M/mm3 (4.00-5.60); RDW 14.1 % (11.9-15.9); WHITE BLOOD COUNT 6.5 K/mm3 (4.0-10.0)
[2023-07-31 11:26] LABS: POTASSIUM 3.4 mmol/L (3.5-5.1)
[2023-07-31 11:28] LABS: CALCIUM 8.8 mg/dL (8.5-10.1)
[2023-07-31 11:29] LABS: ALBUMIN 2.6 g/dl (3.4-5.0); BLOOD UREA NITROGEN 29.4 mg/dL (7-18); MAGNESIUM 2.2 mg/dL (1.8-2.4)
[2023-07-31 11:32] LABS: CREATININE 1.8 mg/dL (0.55-1.3)
[2023-07-31 11:33] LABS: BILIRUBIN,TOTAL 0.3 mg/dL (0.2-1)
[2023-07-31] MEDS ORDERED: POTASSIUM CHLORIDE TABS 20 MEQ TABLET.ER (FP) PO SCH (12:00)
[2023-07-31 14:43] VITALS: BP 137/76; PULSE 71; RESP 20; TEMP 97.7
== END 2023-07-31 20:40 | disposition home or self-care (01) | DRG 660 ==
LOC: JER 00:33 → JERBED 05:15 → OBSVTOIN 05:51 → J7W 15:41
PROVIDERS: ADMIT Internal Medicine; ATTEND Nurse Practitioner Acute Care
PROC: 0TP98DZ Removal of Intraluminal Device from Ureter, Via Natural or Artificial Opening Endoscopic (ICD-10-PCS; 2023-07-29)
PROC: 0T778DZ Dilation of Left Ureter with Intraluminal Device, Via Natural or Artificial Opening Endoscopic (ICD-10-PCS; principal; 2023-07-29 13:01)
PROC: 0TC78ZZ Extirpation of Matter from Left Ureter, Via Natural or Artificial Opening Endoscopic (ICD-10-PCS; 2023-07-29 13:01)
DX: N13.2 Hydronephrosis with renal and ureteral calculous obstruction (principal); S37.012A Minor contusion of left kidney, initial encounter; N17.9 Acute kidney failure, unspecified; I12.9 Hypertensive chronic kidney disease with stage 1 through stage 4 chronic kidney disease, or unspecified chronic kidney disease; N18.9 Chronic kidney disease, unspecified; I48.91 Unspecified atrial fibrillation; R31.9 Hematuria, unspecified; E11.9 Type 2 diabetes mellitus without complications; E78.5 Hyperlipidemia, unspecified; F03.90 Unspecified dementia, unspecified severity, without behavioral disturbance, psychotic disturbance, mood disturbance, and anxiety; X58.XXXA Exposure to other specified factors, initial encounter; Y93.89 Activity, other specified; Y92.89 Other specified places as the place of occurrence of the external cause; Y99.9 Unspecified external cause status
CPT/HCPCS: 36415; 74176-TC; 76000-TC-FY; 80053; 81003; 82360; 83605; 83690; 83735; 84100; 85025; 85610; 85730; 86850; 86900; 86901; 87086; 88300-TC; 93005; 93010; 94760; 99285-25; C2617; G0378